=== PATIENT | female | born 1985 | race American Indian/Alaskan Native ===

== ENCOUNTER 2017-12-08 13:42 | Emergency (ER) | payer OTHER ==
[2017-12-08 13:57] VITALS: BP 149/86
--- NOTE | 2017-12-08 15:07 | Emergency Department Report ---
ED Extremity Problem HPI - General Chief complaint: Extremity Problem,Nontraumatic Stated complaint: KNEE PAIN Time Seen by Provider: 12/08/17 14:56 Source: patient Mode of arrival: Ambulatory Limitations: No Limitations - History of Present Illness Initial comments: Patient is 32 years old female with no significant past medical history. Patient presented to the ER complaining of history of left knee pain that just get worse recently. Patient denied any history of injury or trauma but she stated that she woke 12 hours and she stands a lot on her feet. Patient denied any fever, nausea or vomiting. No other complaint. Patient denied any chest pain or shortness of breath. MD Complaint: joint paint -: month(s) Location: left, knee History of Same: No -: No myalgia, No arthralgia, No fever, No associated dyspnea, No associated chest pain Radiation: none Severity scale (0 -10): 5 Quality: sharp Consistency: constant Improves with: immobilization Worsens with: weight bearing Associated Symptoms: denies other symptoms. denies: chest pain, shortness of breath, fever, myalgias, arthralgias - Related Data Allergies Allergy/AdvReac Type Severity Reaction Status Date / Time No Known Allergies Allergy Verified 12/08/17 13:54 ED Review of Systems ROS: Stated complaint: KNEE PAIN Other details as noted in HPI Comment: All other systems reviewed and negative Constitutional: denies: chills, fever ENT: denies: throat pain Cardiovascular: denies: chest pain Gastrointestinal: denies: abdominal pain, nausea, vomiting Genitourinary: denies: urgency, dysuria ED Past Medical Hx - Past Medical History Previous Medical History?: No - Surgical History Past Surgical History?: No - Social History Smoking Status: Never Smoker Substance Use Type: None ED Physical Exam - General Limitations: No Limitations General appearance: alert, in no apparent distress - Head Head exam: Present: atraumatic, normocephalic, normal inspection - ENT ENT exam: Present: normal exam, normal orophraynx - Respiratory Respiratory exam: Present: normal lung sounds bilaterally - Cardiovascular Cardiovascular Exam: Present: regular rate, normal heart sounds - GI/Abdominal GI/Abdominal exam: Present: soft. Absent: distended, tenderness, guarding - Expanded Lower Extremity Exam Left Knee exam: Present: full ROM. Absent: tenderness, swelling, abrasion, laceration, ecchymosis, deformity, crepidus, dislocation, erythema, effusion, pain w/ pronation/supination, posterior draw sign, pain/laxity with valgus, pain /laxity with varus, full knee extension Neuro vascular tendon exam: Present: no vascular compromise ED Course Vital Signs 12/08/17 13:54 Temperature 98.9 F Pulse Rate 79 Respiratory 16 Rate Blood Pressure 149/86 O2 Sat by Pulse 97 Oximetry ED Medical Decision Making - Radiology Data Radiology results: report reviewed Referring Physician: REBEKAH RAMIREZ Patient Name: JEN GIBSON Date of : 1985 Sex: Female Report Date: 2017-12-08 Report Status: Finalized Findings [facility] [address] [place] [address] XRay Report Signed Patient: JEN GIBSON MR#: [id number] : 1985 Acct:[id number] Age/Sex: 32 / F ADM Date: 12/08/17 Loc: ED Attending Dr: Ordering Physician: REBEKAH RAMIREZ Date of Service: 12/08/17 Procedure(s): XR knee 3V LT Accession Number(s): [id number] cc: REBEKAH RAMIREZ Fluoro Time In Minutes: FINAL REPORT PROCEDURE: Left knee. TECHNIQUE: Three views. HISTORY: Knee pain. COMPARISON: No prior studies are available for comparison. FINDINGS: The bones appear intact without fracture or dislocation. The joint spaces appear normal. The soft tissues are unremarkable. There is no evidence of a knee effusion. IMPRESSION: Normal study. Transcribed By: MRM Dictated By: YAMILE BRIONES MD Electronically Authenticated By: YAMILE BRIONES MD Signed Date/Time: 12/08/17 1640 DD/ 1640 TD/TT: 12/08/17 1640 Critical care attestation.: If time is entered above; I have spent that time in minutes in the direct care of this critically ill patient, excluding procedure time. ED Disposition Clinical Impression: Knee pain, left Disposition: DC-01 TO HOME OR SELFCARE Is pt being admited?: No Condition: Stable Instructions: Osteoarthritis (ED), Knee Pain (ED)
--- NOTE | 2017-12-08 16:45 | XRay Report ---
FINAL REPORT PROCEDURE: Left knee. TECHNIQUE: Three views. HISTORY: Knee pain. COMPARISON: No prior studies are available for comparison. FINDINGS: The bones appear intact without fracture or dislocation. The joint spaces appear normal. The soft tissues are unremarkable. There is no evidence of a knee effusion. IMPRESSION: Normal study.
== END 2017-12-08 17:05 | disposition home or self-care (01) ==
LOC: ED 13:42
DX: M25.562 Pain in left knee (principal)
CPT/HCPCS: 99283

== ENCOUNTER 2018-02-23 06:22 | Emergency (ER) | payer OTHER ==
[2018-02-23 07:03] VITALS: BP 149/76
[2018-02-23] MEDS ORDERED: TORADOL IM ONE (07:44)
--- NOTE | 2018-02-23 07:45 | Emergency Department Report ---
ED Lower Extremity HPI - General Chief Complaint: Extremity Injury, Lower Stated Complaint: FALL/LEFT ANKLE INJURY Source: patient Mode of arrival: Ambulatory Limitations: No Limitations - History of Present Illness Initial Comments: This is a 32-year-old -Turkish female who presents with left ankle pain from a fall. Patient states yesterday morning she was on her way to work and fell down the stairs twisting her left ankle inward. Patient reports it was very painful to attempt to stand. She is able to apply partial weight to left lower extremity. There is swelling and redness to the lateral side of the ankle. Patient states she is taken ibuprofen 800 mg, applied icy hot and ice to ankle with no improvement of symptoms. Patient reports pain is worse with weightbearing and touch. She reports pain as 8 out of 10 on pain scale and sharp achy intensity. Patient denies numbness or tingling, deformity, warmth, weakness, paralysis, loss of consciousness, hitting head, chest pain. MD Complaint: ankle injury (left ankle) Onset/Timin -: days(s) Injury: Ankle: Left Type of Injury: inversion Place: home Severity: severe Severity scale (0 -10): 8 Improves With: cold therapy, immobilization, rest Worsens With: weight bearing, movement, palpation Context: fall Associated Symptoms: swelling, able to partially bear weight, ambulatory. denies: numbness, tingling, unable to bear weight Treatments Prior to Arrival: cold therapy, NSAIDS - Related Data Previous Rx's Medication Instructions Recorded Last Taken Type Ondansetron [Zofran Odt] 4 mg PO Q8HR PRN #14 tab.rapdis 12/08/17 Unknown Rx traMADol [Ultram] 50 mg PO Q6HR PRN #14 tablet 12/08/17 Unknown Rx Ibuprofen [Motrin 800 MG tab] 800 mg PO Q8HR PRN #12 tablet 02/23/18 Unknown Rx Allergies Allergy/AdvReac Type Severity Reaction Status Date / Time No Known Allergies Allergy Verified 12/08/17 13:54 ED Review of Systems ROS: Stated complaint: FALL/LEFT ANKLE INJURY Other details as noted in HPI Constitutional: denies: chills, fever Respiratory: denies: cough, shortness of breath, wheezing Cardiovascular: denies: chest pain, palpitations Gastrointestinal: denies: abdominal pain, nausea, diarrhea Musculoskeletal: joint swelling (left ankle), arthralgia (left ankle). denies: back pain Skin: denies: rash, lesions Neurological: denies: headache, weakness, paresthesias Psychiatric: denies: anxiety, depression ED Past Medical Hx - Past Medical History Previous Medical History?: No - Surgical History Past Surgical History?: No - Social History Smoking Status: Never Smoker Substance Use Type: None - Medications Home Medications: Home Medications Medication Instructions Recorded Confirmed Last Taken Type Ondansetron [Zofran Odt] 4 mg PO Q8HR PRN #14 tab.rapdis 12/08/17 Unknown Rx traMADol [Ultram] 50 mg PO Q6HR PRN #14 tablet 12/08/17 Unknown Rx Ibuprofen [Motrin 800 MG tab] 800 mg PO Q8HR PRN #12 tablet 02/23/18 Unknown Rx ED Physical Exam - General Limitations: No Limitations General appearance: alert, in no apparent distress, obese - Respiratory Respiratory exam: Present: normal lung sounds bilaterally. Absent: respiratory distress - Cardiovascular Cardiovascular Exam: Present: regular rate, normal rhythm. Absent: systolic murmur, diastolic murmur, rubs, gallop - GI/Abdominal GI/Abdominal exam: Present: soft, normal bowel sounds - Expanded Lower Extremity Exam Left Hip exam: Present: normal inspection, full ROM Upper Leg exam: Present: normal inspection, full ROM Knee exam: Present: normal inspection, full ROM Lower Leg exam: Present: normal inspection, full ROM Ankle exam: Present: tenderness (swelling and tenderness with palpation over lateral malleolus), swelling, anterior draw sign (positive for mild pain). Absent: full ROM, abrasion, laceration, ecchymosis, deformity, crepidus, dislocation, erythema Foot/Toe exam: Present: normal inspection, full ROM Neuro vascular tendon exam: Present: no vascular compromise Gait: Positive: observed and limited by pain - Neurological Exam Neurological exam: Present: alert, oriented X3 - Psychiatric Psychiatric exam: Present: normal affect, normal mood - Skin Skin exam: Present: warm, dry, intact, normal color. Absent: rash ED Course Vital Signs 02/23/18 06:56 Temperature 97.9 F Pulse Rate 85 Respiratory 14 Rate Blood Pressure 149/76 O2 Sat by Pulse 100 Oximetry ED Lower Extremity MDM - Radiology Data Radiology results: report reviewed, image reviewed LEFT ANKLE, 3 views: History: Left ankle injury. Bone mineralization is normal. No acute osseous abnormality or joint pathology is identified. There is moderate lateral soft tissue swelling. IMPRESSION: Soft tissue swelling. No acute osseous injury identified. - Medical Decision Making Patient was examined by me in the emergency room. Vitals are normal and patient is in no acute distress. Patient given Toradol 30 mg IM once in the ER for pain. Obtained a x-ray of left ankle. X-rays dictated by radiologist and report reviewed by myself. Soft tissue swelling. No acute osseous injury identified. Patient informed of results. Stirrup splint applied to left ankle and foot. Patient given crutches with education. Start ibuprofen for muscle sprain. Patient has been advised to modify activity as needed. She has also been instructed to ice as needed and to follow-up in her few days with primary care provider. I discussed strengthening exercises. Plan discussed with patient to discharge home and treat outpatient. He agrees with ER plan. Patient discharged home in stable condition. Follow up with PCP in 2-3 days. Return to work in 2-3 days. Critical care attestation.: If time is entered above; I have spent that time in minutes in the direct care of this critically ill patient, excluding procedure time. ED Disposition Clinical Impression: Left lateral ankle pain Sprain of ankle, left Qualifiers: Encounter type: initial encounter Involved ligament of ankle: anterior talofibular ligament Qualified Code(s): S93.492A - Sprain of other ligament of left ankle, initial encounter Disposition: TO HOME OR SELFCARE Is pt being admited?: No Does the pt Need Aspirin: No Condition: Stable Instructions: Ankle Sprain (ED), Ankle Stirrup Splint (ED) Additional Instructions: Rest Use ice or heat on affected area for 20 minutes and off for 2 hours. Take pain medication as needed for pain. Follow up with Primary Care Provider in 2-3 days. Prescriptions: Ibuprofen [Motrin 800 MG tab] 800 mg PO Q8HR PRN #12 tablet PRN Reason: Pain , Severe (7-10) Referrals: NAOMIE BALBUENA MD [Staff Physician] - 3-5 Days [facility] [Provider Group] - 3-5 Days FRED BROWN MD [Staff Physician] - 3-5 Days Forms: Work/School Release Form(ED) Time of Disposition: 08:26 Print Language: SAMI
--- NOTE | 2018-02-23 08:09 | XRay Report ---
LEFT ANKLE, 3 views: History: Left ankle injury. Bone mineralization is normal. No acute osseous abnormality or joint pathology is identified. There is moderate lateral soft tissue swelling. IMPRESSION: Soft tissue swelling. No acute osseous injury identified.
== END 2018-02-23 08:48 | disposition home or self-care (01) ==
LOC: ED 06:22
DX: S93.492A Sprain of other ligament of left ankle, initial encounter (principal); W10.9XXA Fall (on) (from) unspecified stairs and steps, initial encounter; Y93.89 Activity, other specified; Y92.89 Other specified places as the place of occurrence of the external cause; Y99.8 Other external cause status
CPT/HCPCS: 29515; 73610; 96372; 99284; J1885

== ENCOUNTER 2018-06-23 08:32 | Emergency (ER) | payer OTHER ==
[2018-06-23 08:58] VITALS: BP 135/94
--- NOTE | 2018-06-23 09:37 | XRay Report ---
LEFT KNEE, 3 views: History: Pain. The bony architecture is intact without evidence of fracture or dislocation. No significant soft tissue abnormality is seen. IMPRESSION: Normal left knee. No change since 12/08/17.
--- NOTE | 2018-06-23 10:04 | Emergency Department Report ---
ED General Adult HPI - General Chief complaint: Extremity Injury, Lower Stated complaint: LEFT KNEE PAIN/SWOLLEN Time Seen by Provider: 06/23/18 09:27 Source: patient Mode of arrival: Ambulatory Limitations: No Limitations - History of Present Illness Initial comments: The patient presents to the ED with left knee pain that has been present since 2008. Patient was diagnosed with patellar synfrome via MRI years ago but was not sent to PT. 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 Scheduled MRI next week. previous PCP gave gabepentin which she was not pleased with because it was to strong -: Gradual Location: lower extremity Radiation: non-radiation Severity scale (0 -10): 5 Quality: aching Consistency: constant Improves with: rest Worsens with: movement Associated Symptoms: denies other symptoms Treatments Prior to Arrival: none - Related Data Previous Rx's Medication Instructions Recorded Last Taken Type Ondansetron [Zofran Odt] 4 mg PO Q8HR PRN #14 tab.rapdis 12/08/17 Unknown Rx traMADol [Ultram] 50 mg PO Q6HR PRN #14 tablet 12/08/17 Unknown Rx Ibuprofen [Motrin 800 MG tab] 800 mg PO Q8HR PRN #12 tablet 02/23/18 Unknown Rx predniSONE [Deltasone] 20 mg PO QDAY #15 tab 06/23/18 Unknown Rx traMADol [Ultram] 50 mg PO Q6HR PRN #24 tablet 06/23/18 Unknown Rx Allergies Allergy/AdvReac Type Severity Reaction Status Date / Time No Known Allergies Allergy Verified 06/23/18 08:54 ED Review of Systems ROS: Stated complaint: LEFT KNEE PAIN/SWOLLEN Other details as noted in HPI Comment: All other systems reviewed and negative Constitutional: denies: chills, fever Eyes: denies: eye pain, eye discharge, vision change ENT: denies: ear pain, throat pain Respiratory: denies: cough, shortness of breath, wheezing Cardiovascular: denies: chest pain, palpitations Endocrine: no symptoms reported Gastrointestinal: denies: abdominal pain, nausea, diarrhea Genitourinary: denies: urgency, dysuria, discharge Musculoskeletal: denies: back pain, joint swelling, arthralgia Skin: denies: rash, lesions Neurological: denies: headache, weakness, paresthesias Psychiatric: denies: anxiety, depression Hematological/Lymphatic: denies: easy bleeding, easy bruising ED Past Medical Hx - Past Medical History Previous Medical History?: Yes Hx Hypertension: Yes - Surgical History Past Surgical History?: No - Social History Smoking Status: Never Smoker Substance Use Type: Alcohol - Medications Home Medications: Home Medications Medication Instructions Recorded Confirmed Last Taken Type Ondansetron [Zofran Odt] 4 mg PO Q8HR PRN #14 tab.rapdis 12/08/17 Unknown Rx traMADol [Ultram] 50 mg PO Q6HR PRN #14 tablet 12/08/17 Unknown Rx Ibuprofen [Motrin 800 MG tab] 800 mg PO Q8HR PRN #12 tablet 02/23/18 Unknown Rx predniSONE [Deltasone] 20 mg PO QDAY #15 tab 06/23/18 Unknown Rx traMADol [Ultram] 50 mg PO Q6HR PRN #24 tablet 06/23/18 Unknown Rx ED Physical Exam - General Limitations: No Limitations General appearance: alert, in no apparent distress - Head Head exam: Present: atraumatic, normocephalic - Eye Eye exam: Present: normal appearance - ENT ENT exam: Present: mucous membranes moist - Neck Neck exam: Present: normal inspection - Respiratory Respiratory exam: Present: normal lung sounds bilaterally. Absent: respiratory distress - Cardiovascular Cardiovascular Exam: Present: regular rate, normal rhythm. Absent: systolic murmur, diastolic murmur, rubs, gallop - Extremities Exam Extremities exam: Present: other (TTP of left patella tendon with crepitus present ) - Back Exam Back exam: Present: normal inspection - Neurological Exam Neurological exam: Present: alert, oriented X3 - Psychiatric Psychiatric exam: Present: normal affect, normal mood - Skin Skin exam: Present: warm, dry, intact, normal color. Absent: rash ED Course Vital Signs 06/23/18 08:50 Temperature 98.9 F Pulse Rate 85 Respiratory 16 Rate Blood Pressure 135/94 O2 Sat by Pulse 100 Oximetry ED Medical Decision Making - Radiology Data Radiology results: report reviewed - Medical Decision Making discussed the knee to purchase a knee brace will refer to ortho Critical care attestation.: If time is entered above; I have spent that time in minutes in the direct care of this critically ill patient, excluding procedure time. ED Disposition Clinical Impression: Knee pain Disposition: - TO HOME OR SELFCARE Is pt being admited?: No Does the pt Need Aspirin: No Condition: Stable Instructions: Knee Pain (ED) Additional Instructions: Return if if worse Prescriptions: predniSONE [Deltasone] 20 mg PO QDAY #15 tab traMADol [Ultram] 50 mg PO Q6HR PRN #24 tablet PRN Reason: Pain Referrals: MARK PARKER MD [Primary Care Provider] - 3-5 Days Forms: Work/School Release Form(ED) Time of Disposition: 10:05
== END 2018-06-23 10:26 | disposition home or self-care (01) ==
LOC: ED 08:32
DX: M25.562 Pain in left knee (principal); I10 Essential (primary) hypertension

== ENCOUNTER 2018-08-06 16:38 | Emergency (ER) | payer OTHER ==
--- NOTE | 2018-08-06 17:02 | Emergency Department Report ---
Blank Doc - Documentation Documentation: This is a 32-year-old female that presents with headache with nasal congestion. Denies worst headache or thunderclap headache. Exam: neuro exam normal. Normal strength. No facial drooping. This initial assessment/diagnostic orders/clinical plan/treatment(s) is/are subject to change based on patient's health status, clinical progression and re- assessment by fellow clinical providers in the ED. Further treatment and workup at subsequent clinical providers discretion. Patient/guardians urged not to elope from the ED as their condition may be serious if not clinically assessed and managed. Initial orders include: 1- Patient sent to [facility] for further evaluation and treatment
[2018-08-06 17:04] VITALS: BP 157/90
--- NOTE | 2018-08-06 18:18 | Emergency Department Report ---
ED Headache HPI - General Chief Complaint: Headache Stated Complaint: SINUS PROBLEMS/HEADACHE/SHERRIE Time Seen by Provider: 08/06/18 18:01 Source: patient Exam Limitations: no limitations - History of Present Illness Timing/Duration: other (3 weeks) Quality: severe, constant, stabbing, throbbing Head Injury Location: frontal, other (sinus) Recent Head Trauma: no recent headache/trauma Modifying Factors: improves with: medication, rest Associated Symptoms: facial pain, nasal congestion, nasal drainage, sinus infection. denies: confusion, fatigue, fever/chills, flushing, loss of consciousness, nausea/vomiting, numbness in legs/feet, rash, seizures, stiff neck, vision changes, weakness Allergies/Adverse Reactions: Allergies No Known Allergies Allergy (Verified 08/06/18 16:46) Home Medications: Ambulatory Orders Ondansetron [Zofran Odt] 4 mg PO Q8HR PRN #14 tab.rapdis 12/08/17 traMADol [Ultram] 50 mg PO Q6HR PRN #14 tablet 12/08/17 Ibuprofen [Motrin 800 MG tab] 800 mg PO Q8HR PRN #12 tablet 02/23/18 predniSONE [Deltasone] 20 mg PO QDAY #15 tab 06/23/18 traMADol [Ultram] 50 mg PO Q6HR PRN #24 tablet 06/23/18 Doxycycline Hyclate [Doxycycline Hyclate TAB] 100 mg PO Q12HR 10 Days #20 tab 08/06/18 methylPREDNISolone [Medrol] 4 mg PO DAILY 6 Days #1 tab.ds.pk 08/06/18 ED Review of Systems ROS: Stated complaint: SINUS PROBLEMS/HEADACHE/SHERRIE Other details as noted in HPI Constitutional: denies: chills, fever Eyes: denies: eye pain, eye discharge, vision change ENT: denies: ear pain, throat pain Respiratory: denies: cough, shortness of breath, wheezing Cardiovascular: denies: chest pain, palpitations Endocrine: no symptoms reported Gastrointestinal: denies: abdominal pain, nausea, diarrhea Genitourinary: denies: urgency, dysuria, discharge Musculoskeletal: denies: back pain, joint swelling, arthralgia Skin: denies: rash, lesions Neurological: headache. denies: weakness, paresthesias Psychiatric: denies: anxiety, depression Hematological/Lymphatic: denies: easy bleeding, easy bruising ED Past Medical Hx - Past Medical History Previous Medical History?: Yes Hx Hypertension: Yes Hx Heart Attack/AMI: Yes Hx Seizures: Yes - Surgical History Past Surgical History?: No - Family History Family history: no significant - Social History Smoking Status: Never Smoker Substance Use Type: None - Medications Home Medications: Home Medications Medication Instructions Recorded Confirmed Last Taken Type Ondansetron [Zofran Odt] 4 mg PO Q8HR PRN #14 tab.rapdis 12/08/17 Unknown Rx traMADol [Ultram] 50 mg PO Q6HR PRN #14 tablet 12/08/17 Unknown Rx Ibuprofen [Motrin 800 MG tab] 800 mg PO Q8HR PRN #12 tablet 02/23/18 Unknown Rx predniSONE [Deltasone] 20 mg PO QDAY #15 tab 06/23/18 Unknown Rx traMADol [Ultram] 50 mg PO Q6HR PRN #24 tablet 06/23/18 Unknown Rx Doxycycline Hyclate [Doxycycline 100 mg PO Q12HR 10 Days #20 tab 08/06/18 Unknown Rx Hyclate TAB] methylPREDNISolone [Medrol] 4 mg PO DAILY 6 Days #1 tab.ds.pk 08/06/18 Unknown Rx ED Physical Exam - General Limitations: No Limitations General appearance: alert, in no apparent distress - Head Head exam: Present: atraumatic, normocephalic - Eye Eye exam: Present: normal appearance, PERRL Pupils: Present: normal accommodation - ENT ENT exam: Present: mucous membranes moist, other (frontal/maxillary sinus tenderness on palpation.) - Expanded ENT Exam Expanded Ear exam: Present: normal external inspection Mouth exam: Present: normal external inspection - Neck Neck exam: Present: normal inspection, full ROM. Absent: tenderness, meningi smus - Respiratory Respiratory exam: Present: normal lung sounds bilaterally. Absent: respiratory distress, wheezes, rales, rhonchi - Cardiovascular Cardiovascular Exam: Present: regular rate, normal rhythm. Absent: systolic murmur, diastolic murmur, rubs, gallop - GI/Abdominal GI/Abdominal exam: Present: soft, normal bowel sounds - Rectal Rectal exam: Present: deferred - Extremities Exam Extremities exam: Present: normal inspection, full ROM - Back Exam Back exam: Present: normal inspection, full ROM - Neurological Exam Neurological exam: Present: alert, oriented X3 - Psychiatric Psychiatric exam: Present: normal affect, normal mood - Skin Skin exam: Present: warm, dry, intact, normal color. Absent: rash ED Course Vital Signs 08/06/18 17:02 Temperature 97.9 F Pulse Rate 63 Respiratory 18 Rate Blood Pressure 157/90 O2 Sat by Pulse 100 Oximetry - Reevaluation(s) Reevaluation #1: Discussed plan of care with patient. Patient agrees with plan of care. Patient will be given Rocephin and Solu-Medrol IM prior to discharge. Patient stable for discharge. Patient clinical findings are consistent with a sinus infection. Patient was treated accordingly. Patient agrees with plan of care and discharge. 08/06/18 18:16 ED Medical Decision Making - Medical Decision Making Patient is a 32-year-old female Emergency room with a sinus headache. Patient found to have sinusitis. Patient was treated with Anaprox. Patient given Solu- Medrol and Rocephin prior to discharge. - Differential Diagnosis headache. Sinus headache. Sinusitis. Critical care attestation.: If time is entered above; I have spent that time in minutes in the direct care of this critically ill patient, excluding procedure time. ED Disposition Clinical Impression: Sinusitis Qualifiers: Sinusitis location: frontal Chronicity: acute Recurrence: non-recurrent Qualified Code(s): J01.10 - Acute frontal sinusitis, unspecified Disposition: DC-01 TO HOME OR SELFCARE Is pt being admited?: No Does the pt Need Aspirin: No Condition: Stable Instructions: Sinusitis (ED), Acute Bacterial Rhinosinusitis (ED) Additional Instructions: Patient involved primary care in 2-3 days. Patient to return to ER if condition worsens. Patient to take meds as instructed. Patient take Tylenol or ibuprofen when necessary for pain. Patient to rest Prescriptions: Doxycycline Hyclate [Doxycycline Hyclate TAB] 100 mg PO Q12HR 10 Days #20 tab methylPREDNISolone [Medrol] 4 mg PO DAILY 6 Days #1 tab.ds.pk Referrals: LAKSHMI MCCLENDON MD [Primary Care Provider] - 2-3 Days Time of Disposition: 18:20
[2018-08-06] MEDS ORDERED: ROCEPHIN IM ONE (18:20)
[2018-08-06] MEDS ORDERED: SOLU-Medrol IM ONE (18:20)
[2018-08-06] MEDS ORDERED: XYLOCAINE 1% MPF 5 mL INFILTRATI ONE (18:20)
== END 2018-08-06 18:59 | disposition home or self-care (01) ==
LOC: ED 16:38
DX: J32.9 Chronic sinusitis, unspecified (principal); I10 Essential (primary) hypertension; I25.2 Old myocardial infarction
CPT/HCPCS: 96372; 99282; J0696; J2930

== ENCOUNTER 2018-10-29 02:58 | Emergency (ER) | payer OTHER ==
[2018-10-29 03:50] LABS: Basophils % (Auto) 0.6 % (0.0-1.8); Eosinophils % (Auto) 0.8 % (0.0-4.3); Hematocrit 38.1 % (30.3-42.9); Hemoglobin 12.4 gm/dl (10.1-14.3); Lymphocytes # (Auto) 1.5 K/mm3 (1.2-5.4); Lymphocytes % (Auto) 44.9 % (13.4-35.0); Mean Corpuscular HGB Conc 33 % (30-34); Mean Corpuscular Volume 84 fl (79-97); Monocytes # (Auto) 0.4 K/mm3 (0.0-0.8); Monocytes % (Auto) 10.9 % (0.0-7.3); Platelet Count 216 K/mm3 (140-440); Red Blood Count 4.53 M/mm3 (3.65-5.03); Red Cell Distribution Width 15.4 % (13.2-15.2)
[2018-10-29 04:14] LABS: BUN/Creatinine Ratio 33; Blood Urea Nitrogen 20 mg/dL (7-17); Calcium 8.5 mg/dL (8.4-10.2); Hemolysis Index 7
[2018-10-29] MEDS ORDERED: ZOFRAN IV ONE (07:44)
[2018-10-29] MEDS ORDERED: MORPHINE IV ONE (07:44)
[2018-10-29] MEDS ORDERED: NACL 0.9% 1000 ML 1,000 ML IV ONE (07:44)
--- NOTE | 2018-10-29 08:36 | Emergency Department Report ---
ED Female HPI - General Chief complaint: Abdominal Pain Stated complaint: EXTREME MENTRUAL PAIN Time Seen by Provider: 10/29/18 07:32 Source: patient Mode of arrival: Ambulatory Limitations: No Limitations - History of Present Illness Initial comments: This is a 33-year-old female nontoxic, well nourished in appearance, no acute signs of distress presents to the ED with c/o of acute on chronic pelvic cramping years. Patient also stated he has some nausea vomiting. Patient stated that she has a history of dysmenorrhea and stated that her . [employer] placed an IUD due to this and since while starting on her menstrual cycle started to have pelvic cramping. Patient denies chest pain, short of breath, fever, chills, headache, stiff neck, numbness or tingling. Patient denies any diarrhea or constipation. Patient denies any recent travels. Patient denies any drug allergies significant past medical history. MD Complaint: pelvic pain -: days(s) (4) Radiation: non-radiating Severity: mild Severity scale (0 -10): 3 Quality: cramping Consistency: constant Improves with: none Worsens with: none Are you Now?: No Associated Symptoms: vaginal bleeding, nausea/vomiting. denies: vaginal discharge, abdominal pain, fever/chills, headaches, loss of appetite, dysuria, hematuria, rash, seizure, shortness of breath, syncope, weakness - Related Data Previous Rx's Medication Instructions Recorded Last Taken Type Ondansetron [Zofran Odt] 4 mg PO Q8HR PRN #14 tab.rapdis 12/08/17 Unknown Rx traMADol [Ultram] 50 mg PO Q6HR PRN #14 tablet 12/08/17 Unknown Rx Ibuprofen [Motrin 800 MG tab] 800 mg PO Q8HR PRN #12 tablet 02/23/18 Unknown Rx predniSONE [Deltasone] 20 mg PO QDAY #15 tab 06/23/18 Unknown Rx traMADol [Ultram] 50 mg PO Q6HR PRN #24 tablet 06/23/18 Unknown Rx Doxycycline Hyclate [Doxycycline 100 mg PO Q12HR 10 Days #20 tab 08/06/18 Unknown Rx Hyclate TAB] methylPREDNISolone [Medrol] 4 mg PO DAILY 6 Days #1 tab.ds.pk 03/10/19 Unknown Rx Acetaminophen/Codeine [Tylenol 1 tab PO Q6H PRN #12 tab 10/29/18 Unknown Rx /Codeine # 3 tab] Ibuprofen [Motrin] 600 mg PO Q8H PRN #20 tablet 10/29/18 Unknown Rx Sulfamethoxazole/Trimethoprim 1 each PO BID #14 tablet 10/29/18 Unknown Rx [Bactrim DS TAB] Allergies Allergy/AdvReac Type Severity Reaction Status Date / Time No Known Allergies Allergy Verified 10/29/18 03:02 ED Review of Systems ROS: Stated complaint: EXTREME MENTRUAL PAIN Other details as noted in HPI Constitutional: denies: chills, fever Eyes: denies: eye pain, eye discharge, vision change ENT: denies: ear pain, throat pain Respiratory: denies: cough, shortness of breath, wheezing Cardiovascular: denies: chest pain, palpitations Endocrine: no symptoms reported Gastrointestinal: denies: abdominal pain, nausea, diarrhea Genitourinary: abnormal menses. denies: urgency, dysuria, discharge Musculoskeletal: denies: back pain, joint swelling, arthralgia Skin: denies: rash, lesions Neurological: denies: headache, weakness, paresthesias Psychiatric: denies: anxiety, depression Hematological/Lymphatic: denies: easy bleeding, easy bruising ED Past Medical Hx - Past Medical History Previous Medical History?: Yes Hx Hypertension: Yes Hx Heart Attack/AMI: Yes Hx Seizures: Yes - Surgical History Past Surgical History?: No - Social History Smoking Status: Never Smoker Substance Use Type: None - Medications Home Medications: Home Medications Medication Instructions Recorded Confirmed Last Taken Type Ondansetron [Zofran Odt] 4 mg PO Q8HR PRN #14 tab.rapdis 12/08/17 Unknown Rx traMADol [Ultram] 50 mg PO Q6HR PRN #14 tablet 12/08/17 Unknown Rx Ibuprofen [Motrin 800 MG tab] 800 mg PO Q8HR PRN #12 tablet 02/23/18 Unknown Rx predniSONE [Deltasone] 20 mg PO QDAY #15 tab 06/23/18 Unknown Rx traMADol [Ultram] 50 mg PO Q6HR PRN #24 tablet 06/23/18 Unknown Rx Doxycycline Hyclate [Doxycycline 100 mg PO Q12HR 10 Days #20 tab 08/06/18 Unkno wn Rx Hyclate TAB] methylPREDNISolone [Medrol] 4 mg PO DAILY 6 Days #1 tab.ds.pk 08/06/18 Unknown Rx Acetaminophen/Codeine [Tylenol 1 tab PO Q6H PRN #12 tab 10/29/18 Unknown Rx /Codeine # 3 tab] Ibuprofen [Motrin] 600 mg PO Q8H PRN #20 tablet 10/29/18 Unknown Rx Sulfamethoxazole/Trimethoprim 1 each PO BID #14 tablet 10/29/18 Unknown Rx [Bactrim DS TAB] ED Physical Exam - General Limitations: No Limitations General appearance: alert, in no apparent distress - Head Head exam: Present: atraumatic, normocephalic - Neck Neck exam: Present: normal inspection, full ROM - GI/Abdominal GI/Abdominal exam: Present: soft, normal bowel sounds. Absent: distended, tenderness, guarding, rebound, rigid, diminished bowel sounds, hyperactive bowel sounds, hypoactive bowel sounds, mass, bruit, pulsatile mass - Extremities Exam Extremities exam: Present: normal inspection, full ROM - Back Exam Back exam: Present: normal inspection, full ROM. Absent: tenderness, CVA tenderness (R), CVA tenderness (L), muscle spasm, paraspinal tenderness, vertebral tenderness, rash noted - Neurological Exam Neurological exam: Present: alert, oriented X3, normal gait - Psychiatric Psychiatric exam: Present: normal affect, normal mood - Skin Skin exam: Present: warm, dry, intact, normal color. Absent: rash ED Course Vital Signs 10/29/18 03:02 Temperature 98.1 F Pulse Rate 82 Respiratory 18 Rate Blood Pressure 108/52 O2 Sat by Pulse 97 Oximetry - Reevaluation(s) Reevaluation #1: 10/29/18 08:35 Patient is speaking in full sentences with no signs of distress noted. - Consultations Consultation #1: 10/29/18 12:26 Patient has been consulted with Dr. Sukumar V about patient history, physical exam, and labs/US report and agrees to ED plan of care and discharge plan of care. ED Medical Decision Making - Lab Data Result diagrams: 10/29/18 03:30 10/29/18 03:30 - Medical Decision Making This is a 33-year-old female that presents with UTI, dysmenorrhea and uterine fibroids. Patient is stable and was examined by me. There is no abdominal tenderness. Negative signs of symptoms of appendicitis. Labs obtained. UA obtained. US pelvic/transvaginal obtained and dictated by the radiologist. I am not concerned about ovarian torsion. Patient clinically does not present with this. Zulyn was also consulted with Dr. Sukumar V which agrees. Patient is notified of the report with no questions noted by the patient. Vital signs are stable prior to discharge. Patient received medical treatment in the ED which patient stated symptoms has resolved and subsided. Was instructed note to operate any machinery due to possible drowsiness and stated someone will drive the patient home. A by mouth challenge has been obtained and patient tolerated well with no nausea vomiting. Patient was notified of strict precautions of appendicitis symptoms and to return to the ED if symptoms occurs as soon as possible. Patient was also instructed to Follow-up with a primary care doctor in 3-5 days or if symptoms worsen and continue return to emergency room as soon as possible. At time of discharge, the patient does not seem toxic or ill in a ppearance. No acute signs of distress noted. Patient agrees to discharge treatment plan of care. No further questions noted by the patient. Critical care attestation.: If time is entered above; I have spent that time in minutes in the direct care of this critically ill patient, excluding procedure time. ED Disposition Clinical Impression: UTI (urinary tract infection) Qualifiers: Urinary tract infection type: acute cystitis Hematuria presence: without hematuria Qualified Code(s): N30.00 - Acute cystitis without hematuria Ovarian cyst Qualifiers: Laterality: bilateral Qualified Code(s): N83.201 - Unspecified ovarian cyst, right side; N83.202 - Unspecified ovarian cyst, left side Uterine fibroid Qualifiers: Uterine leiomyoma location: unspecified location Qualified Code(s): D25.9 - Leiomyoma of uterus, unspecified Disposition: DC-01 TO HOME OR SELFCARE Is pt being admited?: No Does the pt Need Aspirin: No Condition: Stable Instructions: Urinary Tract Infection in Women (ED), Ovarian Cyst (ED), Uterine Fibroids (ED) Additional Instructions: Follow-up with a OBGYN doctor in 3-5 days or if symptoms worsen and continue return to emergency room as soon as possible. Prescriptions: Sulfamethoxazole/Trimethoprim [Bactrim DS TAB] 1 each PO BID #14 tablet Ibuprofen [Motrin] 600 mg PO Q8H PRN #20 tablet PRN Reason: Pain Acetaminophen/Codeine [Tylenol /Codeine # 3 tab] 1 tab PO Q6H PRN #12 tab PRN Reason: Pain , Severe (7-10) Referrals: LAKSHMI MCCLENDON MD [Primary Care Provider] - 3-5 Days PRIMARY CAREMD [Referring] - 3-5 Days JEFF MCCOY MD [Staff Physician] - 3-5 Days [facility] [Provider Group] - 3-5 Days Forms: Work/School Release Form(ED)
[2018-10-29 09:10] LABS: Bilirubin,Urine NEG (Negative); Blood,Urine LG (Negative); Color,Urine Yellow (Yellow); Mucus,Urine 2+ /HPF; Urobilinogen,Urine < 2.0 mg/dL (<2.0)
[2018-10-29 09:11] LABS: HCG Qualitative,Urine Negative (Negative)
--- NOTE | 2018-10-29 10:19 | XRay Report ---
PROCEDURE: XR ABD SERIES W CXR 1V TECHNIQUE: Acute abdominal series including frontal chest and supine/upright abdominal views HISTORY: abd pain COMPARISON: None FINDINGS: Chest radiograph demonstrates no congestion, infiltrate, pleural effusion or pneumothorax. There is no free air. Abdominal gas pattern is nonspecific and nonobstructive. There is some air and fluid in normal caliber colon. There is minimal gas in nondilated small bowel. There are no suspiciou s air-fluid levels. There are no suspicious calcifications seen. IUD projects in the pelvis. IMPRESSION: Nonspecific, nonobstructive abdomen. Unremarkable chest radiograph. This document is electronically signed by Gisell Barakat MD., October 29 2018 11:16:40 AM ET
--- NOTE | 2018-10-29 12:19 | Ultrasound Report ---
PROCEDURE: US PELVIC COMPLETE TECHNIQUE: Real-time transabdominal sonography in multiple planes of the pelvis was performed. The p elvic structures were not optimally visualized. Transvaginal sonography was then performed to better evaluate the structures and/or abnormalities described below with image documentation. Grayscale, col or flow Doppler imaging, and velocity spectral waveform analysis of the ovaries was employed (duplex imaging). HISTORY: pelvic pain COMPARISONS: None . FINDINGS: UTERUS Size: 10.7 x 4.9 x 6.1 cm. IUD: Present and in appropriate position. Endometrial thickness: 2.6 mm. Orientation: anteverted. Cervix: Normal. Fibroids/masses: Multiple uterine fibroids are seen. The largest in the posterior aspect of the uteru s measures 3.8 x 1.9 x 3.4 cm. Another in the anterior aspect of the uterine fundus measures 1.6 x 1. 4 x 1.8 cm. Another in the anterior aspect of the mid uterine body measures 1.0 x 0.6 x 1.1 cm. RIGHT Ovary: 2.8 x 1.7 x 2.5 cm. Appearance: Normal. Measured complex lesion with the right ovary likely represents a degenerating cor pus luteal cyst. A dominant right ovarian follicle is seen. Doppler images: Normal spectral waveforms and color flow images of the arterial inflow. Venous wavefo yovani were not seen. LEFT Ovary: 3.0 x 1.9 x 2.4 cm. Appearance: A mildly complex cystic lesion is seen in the left ovary measuring 1.0 x 0.8 x 0.8 cm. Th e other measured complex left ovarian lesion likely represents a degenerating corpus luteal cyst. Doppler images: Normal spectral waveforms and color flow images of the arterial inflow and venous out flow. Pelvic fluid: None. IMPRESSION: 1. Mildly complex left ovarian lesion may represent a hemorrhagic cyst. Recommend follow-up pelvic ul trasound in 6-10 weeks. 2. Normal arterial waveforms seen to the right ovary. Venous waveforms were not seen. Could consider repeat study to assess for venous waveforms to the right ovary if there is concern for ovarian torsio n. 3. 3 uterine fibroids. 4. IUD in place. This document is electronically signed by Kimberli Howell., October 29 2018 01:17:35 PM ET
[2018-10-29 12:49] VITALS: BP 146/94
== END 2018-10-29 12:49 | disposition home or self-care (01) ==
LOC: ED 02:58
DX: N39.0 Urinary tract infection, site not specified (principal); N83.209 Unspecified ovarian cyst, unspecified side; D25.9 Leiomyoma of uterus, unspecified; I10 Essential (primary) hypertension; I25.2 Old myocardial infarction
CPT/HCPCS: 36415; 74022; 76830; 76856; 80048; 81001; 81025; 85025; 87086; 96361; 96374; 96375; 99284; J2270; J2405; J7030

== ENCOUNTER 2018-11-10 10:12 | Emergency (ER) | payer OTHER ==
[2018-11-10 10:20] VITALS: BP 150/102
--- NOTE | 2018-11-10 11:57 | Emergency Department Report ---
HPI - General Chief Complaint: Urogenital-Female Time Seen by Provider: 11/10/18 11:53 - HPI HPI: Patient is a very pleasant 33-year-old who comes to the ER complaining of ongoing pelvic pain and cramping. She was seen here recently and had a full workup and was having problems with her acute on chronic fibroids. She follows with Dr. Mike at [place] for these fibroids. Last night the pain was so bad she could not go to work. She is having no vaginal bleeding at this time. Patient has a long history of fibroids doing back well over a year. She was initially treated with an IUD which did not help with the bleeding. Her [employer]NAGER than adequate estrogen would stop the bleeding and things got better for a short period of time. However, in the last month the pain has reoccurred. She does have an appointment with Dr. Mike on Tuesday. She had been sent home from the ER on Tylenol 3 and ibuprofen which she is now out of. She has a past medical history of hypertension for which she takes losartan. She has been taking up and states that her blood pressure is up because of the pain. She has no shortness of breath, chest pain or headache. Patient's last menstrual period was 6-1. She has been one time and has one living child EMR has been reviewed and given her ultrasound findings on her visit 2 weeks ago, the recommended follow-up, and the appointment is not until next week I have repeated the ultrasound to rule out any ovarian torsion. ED Past Medical Hx - Past Medical History Hx Hypertension: Yes Hx Heart Attack/AMI: Yes Hx Seizures: Yes - Social History Smoking Status: Never Smoker Substance Use Type: None - Medications Home Medications: Home Medications Medication Instructions Recorded Confirmed Last Taken Type traMADol [Ultram] 50 mg PO Q6HR PRN #10 tablet 11/10/18 Unknown Rx ED Review of Systems ROS: Stated complaint: PELVIC PAIN Other details as noted in HPI Comment: All other systems reviewed and negative Physical Exam - Physical Exam Vital Signs: Vital Signs 11/10/18 10:18 Temperature 98.9 F Pulse Rate 89 Respiratory 18 Rate Blood Pressure 150/102 O2 Sat by Pulse 99 Oximetry Physical Exam: WDWN patient in NAD VS per RN flow sheet Alert and oriented to person, place and time. S1-S2. No S3 or S4. No systolic or diastolic murmur. No JVD. No pitting edema. Lungs clear to auscultation bilaterally anteriorly and posteriorly. Abdomen soft nontender bowel sounds X4 Moves all extremities well. Mood and affect appropriate. ED Course Vital Signs 11/10/18 10:18 Temperature 98.9 F Pulse Rate 89 Respiratory 18 Rate Blood Pressure 150/102 O2 Sat by Pulse 99 Oximetry ED Medical Decision Making - Radiology Data Radiology results: report reviewed, image reviewed - Medical Decision Making Pt concerned that her pain continues. She has ran out of meds and her appnt is not until next week. VSS non toxic playing on phone during ER visit. US NOTED- no acute process UA NOTED preg neg medicated for pain in ER dc home with dc plan of care and follow up. Pt will see her obgyn as scheduled. Vital Signs 11/10/18 10:18 Temperature 98.9 F Pulse Rate 89 Respiratory 18 Rate Blood Pressure 150/102 O2 Sat by Pulse 99 Oximetry Lab Results 11/10/18 Range/Units 12:54 Urine Color Yellow (Yellow) Urine Turbidity Clear (Clear) Urine pH 6.0 (5.0-7.0) Ur Specific [place] 1.016 (1.003-1.030) Urine Protein <15 mg/dl (Negative) mg/dL Urine Glucose (UA) Neg (Negative) mg/dL Urine Ketones 20 (Negative) mg/dL Urine Blood Neg (Negative) Urine Nitrite Neg (Negative) Urine Bilirubin Neg (Negative) Urine Urobilinogen < 2.0 (<2.0) mg/dL Ur Leukocyte Esterase Neg (Negative) Urine WBC (Auto) 1.0 (0.0-6.0) /HPF Urine RBC (Auto) 4.0 (0.0-6.0) /HPF U Epithel Cells (Auto) 2.0 (0-13.0) /HPF Urine Mucus Few /HPF Urine HCG, Qual Negative (Negative) - Differential Diagnosis RO OVARIAN TORSION- SEE PREVOUS US REPORT Critical care attestation.: If time is entered above; I have spent that time in minutes in the direct care of this critically ill patient, excluding procedure time. ED Disposition Clinical Impression: Uterine fibroid Disposition: DC-01 TO HOME OR SELFCARE Is pt being admited?: No Does the pt Need Aspirin: No Condition: Stable Additional Instructions: FOLLOW UP WITH OBGYN SCHEDULED PELVIC REST MOTRIN OR TYLENOL FOR MILD PAIN ULTRAM FOR SEVERE PAIN DIET AND ACTIVITY TOLERATED Prescriptions: traMADol [Ultram] 50 mg PO Q6HR PRN #10 tablet PRN Reason: Pain Referrals: MAX KNAPP MD [Primary Care Provider] - 3-5 Days Forms: Work/School Release Form(ED) Time of Disposition: 15:41
[2018-11-10] MEDS ORDERED: NORCO 10/325 PO ONE (12:01)
[2018-11-10] MEDS ORDERED: ZOFRAN ODT PO ONE (12:01)
[2018-11-10 13:08] LABS: Bilirubin,Urine NEG (Negative); Blood,Urine NEG (Negative); Color,Urine Yellow (Yellow); Mucus,Urine FEW /HPF; Protein,Urine <15 mg/dL mg/dL (Negative); Urobilinogen,Urine < 2.0 mg/dL (<2.0)
[2018-11-10 13:35] LABS: HCG Qualitative,Urine Negative (Negative)
--- NOTE | 2018-11-10 15:35 | Ultrasound Report ---
ULTRASOUND PELVIS DUPLEX DOPPLER COMPLETE - TRANSABDOMINAL AND TRANSVAGINAL: INDICATION: Persistent pelvic pain. COMPARISON: 10/29/2018. FINDINGS: Transabdominal and transvaginal pelvic sonography with spectral Doppler performed in this patient with LMP of 10/26/2018 and demonstrates a 9.6 x 4.9 x 6.4 cm uterus with at least 3 small anterior fibroids again noted in the 1-1.5 cm size range. A well-positioned IUD with posterior shadowing also again seen. Tiny nabothian cyst. Closed cervix. Small pelvic free fluid. Right ovary is 3.1 x 2.1 x 3.2 cm with a 1.7 cm cyst. Left ovary measures 3.2 x 2.6 x 2.7 cm with at least 2 complex areas measuring approximately 2 cm each as on endovaginal images 26-30, possibly ruptured/hemorrhagic cyst. Preserved bilateral ovarian blood flow. CONCLUSION: No acute pelvic sonographic abnormality or significant interval change with few small uterine fibroids and an IUD again noted, as described. Please correlate. Thank you for the opportunity to participate in this patient's care.
== END 2018-11-10 17:06 | disposition home or self-care (01) ==
LOC: ED 10:12
DX: D25.9 Leiomyoma of uterus, unspecified (principal); I11.0 Hypertensive heart disease with heart failure; I50.9 Heart failure, unspecified
CPT/HCPCS: 76830; 81001; 81025; 93975; Q0162

== ENCOUNTER 2018-12-23 11:34 | Emergency (ER) | payer OTHER ==
[2018-12-23 11:42] VITALS: BP 153/105
--- NOTE | 2018-12-23 11:51 | Event Note ---
Date: 12/23/18 h/o seizures disorder on keppra, 250mg bid, states seizures are becoming more frequent. last seizure this morning, prior to that this past tuesday. no fever, neck pain, chills or night sweats.
[2018-12-23 12:16] LABS: Hematocrit 40.6 % (30.3-42.9); Hemoglobin 13.1 gm/dl (10.1-14.3); Mean Corpuscular HGB Conc 32 % (30-34); Mean Corpuscular Volume 85 fl (79-97); Platelet Count 222 K/mm3 (140-440); Red Blood Count 4.77 M/mm3 (3.65-5.03)
[2018-12-23 12:34] LABS: Alanine Aminotransferase 16 units/L (7-56); BUN/Creatinine Ratio 20; Blood Urea Nitrogen 14 mg/dL (7-17); Calcium 8.7 mg/dL (8.4-10.2); Hemolysis Index 8
[2018-12-23 12:43] LABS: Bilirubin,Urine NEG (Negative); Blood,Urine LG (Negative); Color,Urine Yellow (Yellow); Mucus,Urine FEW /HPF; Protein,Urine <15 mg/dL mg/dL (Negative); Urobilinogen,Urine < 2.0 mg/dL (<2.0)
[2018-12-23 12:44] LABS: HCG Qualitative,Urine Negative (Negative)
[2018-12-23 12:53] LABS: Amphetamine Screen,Urine PRESUMPTIVE NEGATIVE; Benzodiazepines Screen,Urine PRESUMPTIVE NEGATIVE; Cannabinoid Screen,Urine PRESUMPTIVE NEGATIVE; Cocaine Screen,Urine PRESUMPTIVE NEGATIVE; Methadone Screen,Urine PRESUMPTIVE NEGATIVE; Opiate Screen,Urine PRESUMPTIVE NEGATIVE
[2018-12-23] MEDS ORDERED: KEPPRA 1,000 MG/NS 0.75% 100ML 1,000 MG/100 ML BAG IV ONE (12:59)
--- NOTE | 2018-12-23 13:07 | Emergency Department Report ---
ED Seizure HPI - General Chief Complaint: Seizure Stated Complaint: SEIZURES/HEADACHE/ANXIETY Time Seen by Provider: 12/23/18 12:59 Source: patient Mode of arrival: Ambulatory Limitations: No Limitations - History of Present Illness Initial Comments: Ms. Can is a 33 yo female with hx of seizures since age 26. She stopped taking antiepileptic medications end of 2014 on her own. She has been seizure free until 3 weeks ago. Her PCP restarted Keppra and recommended a neurologist outpatient. She had seizure possiby this morning. She feels shaky. Currently no fever. MD Complaint: seizure -: week(s) (3) Witnessed:: Yes Trauma: No Seizure History: known seizure disorder Place: home - Related Data Home Medications Medication Instructions Recorded Confirmed Last Taken levETIRAcetam [Keppra TAB] 250 mg PO BID 12/23/18 12/23/18 Unknown Previous Rx's Medication Instructions Recorded Last Taken Type levETIRAcetam [Keppra TAB] 500 mg PO BID 30 Days #60 tablet 12/23/18 Unknown Rx Allergies Allergy/AdvReac Type Severity Reaction Status Date / Time No Known Allergies Allergy Verified 11/10/18 10:14 ED Review of Systems ROS: Stated complaint: SEIZURES/HEADACHE/ANXIETY Other details as noted in HPI Comment: All other systems reviewed and negative Constitutional: denies: fever, malaise Respiratory: denies: cough Cardiovascular: denies: palpitations ED Past Medical Hx - Past Medical History Previous Medical History?: Yes Hx Hypertension: Yes Hx Heart Attack/AMI: Yes Hx Seizures: Yes - Surgical History Past Surgical History?: No - Social History Smoking Status: Never Smoker Substance Use Type: None - Medications Home Medications: Home Medications Medication Instructions Recorded Confirmed Last Taken Type levETIRAcetam [Keppra TAB] 250 mg PO BID 12/23/18 12/23/18 Unknown History levETIRAcetam [Keppra TAB] 500 mg PO BID 30 Days #60 tablet 12/23/18 Unknown Rx ED Physical Exam - General Limitations: No Limitations General appearance: alert, in no apparent distress - Head Head exam: Present: atraumatic, normocephalic - Eye Eye exam: Present: normal appearance - ENT ENT exam: Present: mucous membranes moist - Neck Neck exam: Present: normal inspection, full ROM - Respiratory Respiratory exam: Present: normal lung sounds bilaterally. Absent: respiratory distress, wheezes, rales, rhonchi - Cardiovascular Cardiovascular Exam: Present: regular rate, normal rhythm, normal heart sounds. Absent: systolic murmur, diastolic murmur, rubs, gallop - GI/Abdominal GI/Abdominal exam: Present: soft, normal bowel sounds. Absent: distended, tenderness, guarding, rebound - Extremities Exam Extremities exam: Present: normal inspection - Back Exam Back exam: Present: normal inspection - Neurological Exam Neurological exam: Present: alert, oriented X3 - Psychiatric Psychiatric exam: Present: normal affect, normal mood - Skin Skin exam: Present: warm, dry, intact, normal color. Absent: rash ED Course Vital Signs 12/23/18 11:37 Temperature 98.6 F Pulse Rate 79 Respiratory 18 Rate Blood Pressure 153/105 O2 Sat by Pulse 97 Oximetry ED Medical Decision Making - Lab Data Result diagrams: 12/23/18 12:01 12/23/18 12:01 Laboratory Results - last 24 hr 12/23/18 12/23/18 12/23/18 12:01 12:01 12:20 WBC 3.5 L RBC 4.77 Hgb 13.1 Hct 40.6 MCV 85 MCH 28 MCHC 32 RDW 16.0 H Plt Count 222 Sodium 141 Potassium 3.5 L Chloride 104.8 Carbon Dioxide 29 Anion Gap 11 BUN 14 Creatinine 0.7 Estimated GFR > 60 BUN/Creatinine Ratio 20 Glucose 90 Calcium 8.7 Total Bilirubin 0.40 AST 20 ALT 16 Alkaline Phosphatase 76 Total Protein 7.8 Albumin 4.0 Albumin/Globulin Ratio 1.1 Urine Color Yellow Urine Turbidity Clear Urine pH 6.0 Ur Specific [place] 1.018 Urine Protein <15 mg/dl Urine Glucose (UA) Neg Urine Ketones Neg Urine Blood Lg Urine Nitrite Neg Urine Bilirubin Neg Urine Urobilinogen < 2.0 Ur Leukocyte Esterase Neg Urine WBC (Auto) 2.0 Urine RBC (Auto) 12.0 U Epithel Cells (Auto) < 1.0 Urine Mucus Few Urine HCG, Qual Negative Urine Opiates Screen Urine Methadone Screen Ur Barbiturates Screen Ur Phencyclidine Scrn Ur Amphetamines Screen U Benzodiazepines Scrn Urine Cocaine Screen U Marijuana (THC) Screen Drugs of Abuse Note 12/23/18 12:20 WBC RBC Hgb Hct MCV MCH MCHC RDW Plt Count Sodium Potassium Chloride Carbon Dioxide Anion Gap BUN Creatinine Estimated GFR BUN/Creatinine Ratio Glucose Calcium Total Bilirubin AST ALT Alkaline Phosphatase Total Protein Albumin Albumin/Globulin Ratio Urine Color Urine Turbidity Urine pH Ur Specific [place] Urine Protein Urine Glucose (UA) Urine Ketones Urine Blood Urine Nitrite Urine Bilirubin Urine Urobilinogen Ur Leukocyte Esterase Urine WBC (Auto) Urine RBC (Auto) U Epithel Cells (Auto) Urine Mucus Urine HCG, Qual Urine Opiates Screen Presumptive negative Urine Methadone Screen Presumptive negative Ur Barbiturates Screen Presumptive negative Ur Phencyclidine Scrn Presumptive negative Ur Amphetamines Screen Presumptive negative U Benzodiazepines Scrn Presumptive negative Urine Cocaine Screen Presumptive negative U Marijuana (THC) Screen Presumptive negative Drugs of Abuse Note Disclamer - Medical Decision Making Ms. Can has history of known seizure disorder. Recommended increasing Keppra from 250 mg to 500 mg by mouth twice a day. She received IV Keppra load in the ED. CBC chemistry urine studies all within normal limits. Referred to neurologist. Critical care attestation.: If time is entered above; I have spent that time in minutes in the direct care of this critically ill patient, excluding procedure time. ED Disposition Clinical Impression: Seizure disorder, Recurrent seizures Disposition: DC-01 TO HOME OR SELFCARE Is pt being admited?: No Does the pt Need Aspirin: No Condition: Stable Instructions: Recurrent Seizures Adult (ED) Prescriptions: levETIRAcetam [Keppra TAB] 500 mg PO BID 30 Days #60 tablet Referrals: GISSELLE WU MD [Staff Physician] - 3-5 Days Forms: Work/School Release Form(ED)
[2018-12-23] MEDS ORDERED: ZOFRAN ODT PO ONE (13:41)
[2018-12-23] MEDS ORDERED: IBUPROFEN PO ONE (13:41)
[2018-12-23] MEDS ORDERED: NORCO 5/325 PO ONE (13:41)
== END 2018-12-23 13:56 | disposition home or self-care (01) ==
LOC: ED 11:34
DX: G40.909 Epilepsy, unspecified, not intractable, without status epilepticus (principal)
CPT/HCPCS: 36415; 80053; 80307; 81001; 81025; 85027; 96365; 99283; J1953; Q0162

== ENCOUNTER 2019-01-02 16:11 | Emergency (ER) | payer OTHER ==
--- NOTE | 2019-01-02 17:44 | Event Note ---
ED Screening Note Date of service: 01/02/19 Time: 17:41 ED Screening Note: 33 y/o female comes in with anxiety like symptoms. Patient just started back having seizures. Since she has started back on seizure meds and now having tremors dizziness insomnia and headache. Last seizure 12/29/18. Appt with neurology 01/25/19. This initial assessment/diagnostic orders/clinical plan/treatment(s) is/are subject to change based on patients health status, clinical progression and re- assessment by fellow clinical providers in the ED. Further treatment and workup at subsequent clinical providers discretion. Patient/guardian urged not to elope from the ED as their condition may be serious if not clinically assessed and managed. Initial orders include:
[2019-01-02 22:01] VITALS: BP 111/77
--- NOTE | 2019-01-02 22:10 | Emergency Department Report ---
ED General Adult HPI - General Chief complaint: Dizziness Stated complaint: DIZZY/TREMORS Time Seen by Provider: 01/02/19 17:39 Source: patient Mode of arrival: Ambulatory Limitations: No Limitations - History of Present Illness Initial comments: Mrs. Can is a pleasant 33-year-old female with previous history of seizure presents with tremor and anxiety. She was evaluated by her PCP who encouraged her to continue Keppra. She has been forgetful. She is extremely anxious. Her neurology appointment is January 25. No seizures. She is afraid that she is going to have a seizure ordered. She desires medication for anxiety. She's also had insomnia. She denies pain. Denies problems. However she feels as if her balance is off. She feels as if something is not right. I have seen Mrs. Can recently for seizure activity. -: Gradual, days(s), week(s) (several) Severity scale (0 -10): 6 Consistency: constant Improves with: none Worsens with: medication Associated Symptoms: headaches, malaise Treatments Prior to Arrival: none - Related Data Home Medications Medication Instructions Recorded Confirmed Last Taken levETIRAcetam [Keppra TAB] 250 mg PO BID 12/23/18 12/23/18 Unknown Previous Rx's Medication Instructions Recorded Last Taken Type levETIRAcetam [Keppra TAB] 500 mg PO BID 30 Days #60 tablet 12/23/18 Unknown Rx Zolpidem [Ambien] 5 mg PO QHS PRN #10 tablet 01/02/19 Unknown Rx Allergies Allergy/AdvReac Type Severity Reaction Status Date / Time No Known Allergies Allergy Verified 11/10/18 10:14 ED Review of Systems ROS: Stated complaint: DIZZY/TREMORS Other details as noted in HPI Comment: All other systems reviewed and negative Constitutional: malaise Neurological: headache, confusion, abnormal gait. denies: numbness, paresthesias ED Past Medical Hx - Past Medical History Previous Medical History?: Yes Hx Hypertension: Yes Hx Heart Attack/AMI: Yes Hx Seizures: Yes - Surgical History Past Surgical History?: No - Social History Smoking Status: Never Smoker Substance Use Type: None - Medications Home Medications: Home Medications Medication Instructions Recorded Confirmed Last Taken Type levETIRAcetam [Keppra TAB] 250 mg PO BID 07/27/19 07/27/19 Unknown History levETIRAcetam [Keppra TAB] 500 mg PO BID 30 Days #60 tablet 12/23/18 Unknown Rx Zolpidem [Ambien] 5 mg PO QHS PRN #10 tablet 01/02/19 Unknown Rx ED Physical Exam - General Limitations: No Limitations General appearance: alert, in no apparent distress - Head Head exam: Present: atraumatic, normocephalic - Eye Eye exam: Present: normal appearance - ENT ENT exam: Present: mucous membranes moist - Neck Neck exam: Present: normal inspection, full ROM - Respiratory Respiratory exam: Present: normal lung sounds bilaterally. Absent: respiratory distress, wheezes, rales, rhonchi - Cardiovascular Cardiovascular Exam: Present: regular rate, normal rhythm, normal heart sounds. Absent: systolic murmur, diastolic murmur, rubs, gallop - GI/Abdominal GI/Abdominal exam: Present: soft, normal bowel sounds. Absent: distended, tenderness, guarding - Extremities Exam Extremities exam: Present: normal inspection - Back Exam Back exam: Present: normal inspection - Neurological Exam Neurological exam: Present: alert, oriented X3, CN II-XII intact, normal gait, reflexes normal. Absent: motor sensory deficit - Psychiatric Psychiatric exam: Present: normal affect, depressed, anxious. Absent: homicidal ideation, suicidal ideation - Skin Skin exam: Present: warm, dry, intact, normal color. Absent: rash ED Course Vital Signs 01/02/19 01/02/19 17:39 22:01 Temperature 99.0 F 97.6 F Pulse Rate 71 76 Respiratory 20 16 Rate Blood Pressure 137/88 Blood Pressure 111/77 [Left] O2 Sat by Pulse 99 100 Oximetry ED Medical Decision Making - Medical Decision Making Ms. Can presents with tremor and anxiety. I prescribed ambien. Dc'd home to f/u with PCP and neurology. Critical care attestation.: If time is entered above; I have spent that time in minutes in the direct care of this critically ill patient, excluding procedure time. ED Disposition Clinical Impression: Recurrent seizures, Seizure disorder, Anxiety, Insomnia, Tremor Disposition: DC-01 TO HOME OR SELFCARE Is pt being admited?: No Does the pt Need Aspirin: No Condition: Stable Instructions: Anxiety (ED), Insomnia (ED) Prescriptions: Zolpidem [Ambien] 5 mg PO QHS PRN #10 tablet PRN Reason: Sleep Referrals: DEBBI FUNK MD [Primary Care Provider] - 3-5 Days
== END 2019-01-02 22:38 | disposition home or self-care (01) ==
LOC: ED 16:11
DX: G40.909 Epilepsy, unspecified, not intractable, without status epilepticus (principal); F41.9 Anxiety disorder, unspecified; G47.00 Insomnia, unspecified; I10 Essential (primary) hypertension; I25.2 Old myocardial infarction; Z79.899 Other long term (current) drug therapy
CPT/HCPCS: 99282

== ENCOUNTER 2019-01-05 06:08 | Emergency (ER) | payer OTHER ==
--- NOTE | 2019-01-05 06:30 | Emergency Department Report ---
ED General Adult HPI - General Stated complaint: SEIZURE LIKE ACTIVITY/HEADACHE Time Seen by Provider: 01/05/19 06:16 - History of Present Illness Initial comments: This is a 33-year-old female that has been to this emergency department several times under similar circumstances. As she has prior, she states that she was tremulous at work. She stated that she was fully awake. She states that she didn't know if she was having a "seizure or not. She states that she has a history of seizure disorder, anxiety disorder and conversion disorder. She did not lose consciousness. She did not hurt herself. She complains of mild headache as she has in the past. 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 She did not injure herself. Patient really has no active complaints on arrival other than chronic insomnia. She has been prescribed Ambien thereof. Apparently she received a prescription for the same on 01/02/19. She states that she has no appointment to see a neurologist and a psychologist. She is fully ambulatory and requests to go to the bathroom. Review of the patient's prior laboratory workup and toxicological analysis revealed no remarkable abnormalities. -: Gradual Associated Symptoms: denies other symptoms Treatments Prior to Arrival: none - Related Data Home Medications Medication Instructions Recorded Confirmed Last Taken levETIRAcetam [Keppra TAB] 250 mg PO BID 12/23/18 12/23/18 Unknown Previous Rx's Medication Instructions Recorded Last Taken Type levETIRAcetam [Keppra TAB] 500 mg PO BID 30 Days #60 tablet 12/23/18 Unknown Rx Zolpidem [Ambien] 5 mg PO QHS PRN #10 tablet 01/02/19 Unknown Rx Allergies Allergy/AdvReac Type Severity Reaction Status Date / Time No Known Allergies Allergy Verified 11/10/18 10:14 ED Review of Systems ROS: Stated complaint: SEIZURE LIKE ACTIVITY/HEADACHE Other details as noted in HPI Constitutional: denies: chills, fever Eyes: denies: eye pain, eye discharge, vision change ENT: denies: ear pain, throat pain Respiratory: denies: cough, shortness of breath, wheezing Cardiovascular: denies: chest pain, palpitations Endocrine: no symptoms reported Gastrointestinal: denies: abdominal pain, nausea, diarrhea Genitourinary: denies: urgency, dysuria, discharge Musculoskeletal: denies: back pain, joint swelling, arthralgia Skin: denies: rash, lesions Neurological: headache (occasional headaches). denies: weakness, paresthesias Psychiatric: anxiety. denies: depression Hematological/Lymphatic: denies: easy bleeding, easy bruising ED Past Medical Hx - Past Medical History Hx Hypertension: Yes Hx Heart Attack/AMI: Yes Hx Seizures: Yes - Social History Smoking Status: Never Smoker Substance Use Type: None - Medications Home Medications: Home Medications Medication Instructions Recorded Confirmed Last Taken Type levETIRAcetam [Keppra TAB] 250 mg PO BID 12/23/18 12/23/18 Unknown History levETIRAcetam [Keppra TAB] 500 mg PO BID 30 Days #60 tablet 12/23/18 Unknown Rx Zolpidem [Ambien] 5 mg PO QHS PRN #10 tablet 01/02/19 Unknown Rx ED Physical Exam - General General appearance: alert, in no apparent distress - Head Head exam: Present: atraumatic, normocephalic - Eye Eye exam: Present: normal appearance. Absent: scleral icterus - ENT ENT exam: Present: mucous membranes moist - Neck Neck exam: Present: normal inspection. Absent: tenderness, meningismus - Respiratory Respiratory exam: Present: normal lung sounds bilaterally. Absent: respiratory distress - Cardiovascular Cardiovascular Exam: Present: regular rate, normal rhythm. Absent: systolic murmur, diastolic murmur, rubs, gallop - GI/Abdominal GI/Abdominal exam: Present: soft, normal bowel sounds. Absent: distended, tenderness, guarding, rebound, rigid - Extremities Exam Extremities exam: Present: normal inspection. Absent: calf tenderness - Back Exam Back exam: Present: normal inspection - Neurological Exam Neurological exam: Present: alert, oriented X3, CN II-XII intact, normal gait. Absent: motor sensory deficit - Psychiatric Psychiatric exam: Present: normal mood, flat affect - Skin Skin exam: Present: warm, dry, intact, normal color. Absent: rash ED Course Vital Signs 01/05/19 06:22 Temperature 98 F Pulse Rate 84 Respiratory 18 Rate Blood Pressure 122/87 O2 Sat by Pulse 98 Oximetry - Reevaluation(s) Reevaluation #1: At discharge her, it does not appear to be necessary to pursue further medical screening for the patient's recurrent complaints. She has appropriate follow-up already in place. We will observe her and see if there is any evidence of a need for further evaluation. 01/05/19 06:30 Reevaluation #2: 01/05/19 08:09 Patient states that she has a mild headache. She states "I know I have nothing wrong with my brain". They check that before. I asked patient if she felt like she needed an emergency psychiatric evaluation. She stated not. Therefore having not identified any emergency medical condition the patient will be referred to her outpatient providers. Critical care attestation.: If time is entered above; I have spent that time in minutes in the direct care of this critically ill patient, excluding procedure time. ED Disposition Clinical Impression: Anxiety disorder Qualifiers: Anxiety disorder type: unspecified anxiety disorder Qualified Code(s): F41.9 - Anxiety disorder, unspecified Disposition: DC-01 TO HOME OR SELFCARE Is pt being admited?: No Does the pt Need Aspirin: No Condition: Stable Instructions: Anxiety (ED), Acute Headache (ED) Additional Instructions: Follow-up with the psychiatrist and neurologist as planned as well as her primary care provider. Return to the emergency department any acute change or problem. [id number] medication is appropriate for your headache. Referrals: PRIMARY CARE [Primary Care Provider] - [facility] Time of Disposition: 08:11
[2019-01-05] MEDS ORDERED: IBUPROFEN PO ONE (08:12)
[2019-01-05 08:57] VITALS: BP 104/65
== END 2019-01-05 08:52 | disposition home or self-care (01) ==
LOC: ED 06:08
DX: F41.9 Anxiety disorder, unspecified (principal); G40.909 Epilepsy, unspecified, not intractable, without status epilepticus; G47.00 Insomnia, unspecified; I10 Essential (primary) hypertension
CPT/HCPCS: 99283

== ENCOUNTER 2019-04-14 11:00 | Emergency (ER) | payer OTHER ==
--- NOTE | 2019-04-14 11:44 | Event Note ---
ED Screening Note Date of service: 04/14/19 Time: 11:40 ED Screening Note: This is a 33 y.o. F. that presents to the ER with headache, dizziness, and anxiety for 3 days. Patient states symptoms occurred a few times before after starting new medication briviact but never lasted this long. Started new medication 03/21/19. She previously was taking lamictal. This initial assessment/diagnostic orders/clinical plan/treatment(s) is/are subject to change based on patients health status, clinical progression and re- assessment by fellow clinical providers in the ED. Further treatment and workup at subsequent clinical providers discretion. Patient/guardian urged not to elope from the ED as their condition may be serious if not clinically assessed and managed. Initial orders include:
--- NOTE | 2019-04-14 13:53 | Emergency Department Report ---
ED General Adult HPI - General Chief complaint: Headache Stated complaint: SEIZURE/PANIC ATTACK/HEADACHE Time Seen by Provider: 04/14/19 11:40 Source: patient Mode of arrival: Ambulatory Limitations: No Limitations - History of Present Illness Initial comments: 33-year-old -[place] female patient with history of seizure disorder, anxiety disorder, conversion disorder, and insomnia presents with complaints of headache, dizziness, and recurrent panic attacks for the past 3 days. Denies any history of migraines, head trauma, vision changes, or numbness/tingling/weakness in her extremities. She denies any confusion or difficulty with speech. Patient states she believes she is having allergic reaction to a new seizure medication she was placed on, Briviact, around 03/18/2019 by her neurologist. She states she experienced these same symptoms during her first few days and taken the medication and then the symptoms resolve. As any seizures since starting this medication. Patient states the headache is more in her face and rates it at an 8/10 in severity. She denies any congestion or cough or fever or neck pain. The patient's blood pressure noted to be elevated at 150/114patient states she was diagnosed with high blood pressure 1-2 weeks ago and described lisinopril which she has not started taking yet. -: Sudden - Related Data Home Medications Medication Instructions Recorded Confirmed Last Taken levETIRAcetam [Keppra TAB] 250 mg PO BID 12/23/18 12/23/18 Unknown Previous Rx's Medication Instructions Recorded Last Taken Type levETIRAcetam [Keppra TAB] 500 mg PO BID 30 Days #60 tablet 12/23/18 Unknown Rx Zolpidem [Ambien] 5 mg PO QHS PRN #10 tablet 01/02/19 Unknown Rx Zolpidem [Ambien] 5 mg PO QHS PRN #3 tablet 04/14/19 Unknown Rx Allergies Allergy/AdvReac Type Severity Reaction Status Date / Time No Known Allergies Allergy Verified 11/10/18 10:14 ED Review of Systems ROS: Stated complaint: SEIZURE/PANIC ATTACK/HEADACHE Other details as noted in HPI ED Past Medical Hx - Past Medical History Previous Medical History?: Yes Hx Hypertension: Yes Hx Heart Attack/AMI: Yes Hx Seizures: Yes Additional medical history: anxiety - Surgical History Past Surgical History?: No - Social History Smoking Status: Never Smoker Substance Use Type: None - Medications Home Medications: Home Medications Medication Instructions Recorded Confirmed Last Taken Type levETIRAcetam [Keppra TAB] 250 mg PO BID 12/23/18 12/23/18 Unknown History levETIRAcetam [Keppra TAB] 500 mg PO BID 30 Days #60 tablet 12/23/18 Unknown Rx Zolpidem [Ambien] 5 mg PO QHS PRN #10 tablet 01/02/19 Unknown Rx Zolpidem [Ambien] 5 mg PO QHS PRN #3 tablet 04/14/19 Unknown Rx ED Physical Exam - General Limitations: No Limitations General appearance: alert, in no apparent distress - Head Head exam: Present: atraumatic, normocephalic - Eye Eye exam: Present: normal appearance, PERRL, EOMI. Absent: scleral icterus - ENT ENT exam: Present: normal orophraynx, other (mild tenderness noted over maxillary sinuses) - Neck Neck exam: Present: normal inspection, full ROM. Absent: tenderness - Respiratory Respiratory exam: Present: normal lung sounds bilaterally. Absent: respiratory distress - Cardiovascular Cardiovascular Exam: Present: regular rate, normal rhythm. Absent: systolic murmur, diastolic murmur, rubs, gallop - GI/Abdominal GI/Abdominal exam: Present: soft. Absent: distended, tenderness - Extremities Exam Extremities exam: Present: normal inspection, full ROM. Absent: pedal edema, calf tenderness - Back Exam Back exam: Present: normal inspection, full ROM - Neurological Exam Neurological exam: Present: alert, oriented X3, CN II-XII intact, normal gait. Absent: motor sensory deficit - Expanded Neurological Exam Expanded Cranial nerves: Gag Reflex: Normal, Tongue Deviation: Normal, Facial Sensation: Normal Cerebellar function: Finger to Nose: Normal, Heel to [place]: Normal, [place]berg: Normal Motor strength exam: RUE: 5, LUE: 5, RLE: 5, LLE: 5 - Psychiatric Psychiatric exam: Present: normal affect, normal mood - Skin Skin exam: Present: warm, dry, intact, normal color. Absent: rash ED Course Vital Signs 04/14/19 04/14/19 04/14/19 11:38 14:58 15:15 Temperature 98.2 F 98.6 F Pulse Rate 97 H 88 88 Respiratory 18 20 Rate Blood Pressure 150/114 150/109 Blood Pressure 150/109 [Left] O2 Sat by Pulse 100 100 Oximetry 04/14/19 04/14/19 04/14/19 15:57 17:37 17:50 Temperature 98.7 F Pulse Rate 83 82 82 Respiratory 20 Rate Blood Pressure 150/11 Blood Pressure 169/115 150/111 [Left] O2 Sat by Pulse 100 Oximetry 04/14/19 04/14/19 17:57 18:43 Temperature Pulse Rate 82 78 Respiratory Rate Blood Pressure Blood Pressure 156/112 144/101 [Left] O2 Sat by Pulse 98 Oximetry ED Medical Decision Making - Lab Data Result diagrams: 04/14/19 13:59 04/14/19 13:59 Lab Results 04/14/19 04/14/19 04/14/19 Range/Units 13:59 13:59 15:14 WBC 4.5 (4.5-11.0) K/mm3 RBC 5.15 H (3.65-5.03) M/mm3 Hgb 14.2 (10.1-14.3) gm/dl Hct 44.4 H (30.3-42.9) % MCV 86 (79-97) fl MCH 28 (28-32) pg MCHC 32 (30-34) % RDW 14.1 (13.2-15.2) % Plt Count 199 (140-440) K/mm3 Sodium 141 (137-145) mmol/L Potassium 4.0 (3.6-5.0) mmol/L Chloride 103.6 (98-107) mmol/L Carbon Dioxide 26 (22-30) mmol/L Anion Gap 15 mmol/L BUN 11 (7-17) mg/dL Creatinine 0.7 (0.7-1.2) mg/dL Estimated GFR > 60 ml/min BUN/Creatinine Ratio 16 % Glucose 84 (65-100) mg/dL Calcium 9.4 (8.4-10.2) mg/dL Total Bilirubin 0.40 (0.1-1.2) mg/dL AST 15 (5-40) units/L ALT 10 (7-56) units/L Alkaline Phosphatase 64 (35-129) units/L Troponin T < 0.010 (0.00-0.029) ng/mL Total Protein 7.9 (6.3-8.2) g/dL Albumin 4.4 (3.9-5) g/dL Albumin/Globulin Ratio 1.3 % Urine Color Yellow (Yellow) Urine Turbidity Clear (Clear) Urine pH 6.0 (5.0-7.0) Ur Specific [place] 1.016 (1.003-1.030) Urine Protein <15 mg/dl (Negative) mg/dL Urine Glucose (UA) Neg (Negative) mg/dL Urine Ketones Neg (Negative) mg/dL Urine Blood Neg (Negative) Urine Nitrite Neg (Negative) Urine Bilirubin Neg (Negative) Urine Urobilinogen < 2.0 (<2.0) mg/dL Ur Leukocyte Esterase Tr (Negative) Urine WBC (Auto) 3.0 (0.0-6.0) /HPF Urine RBC (Auto) 1.0 (0.0-6.0) /HPF U Epithel Cells (Auto) 4.0 (0-13.0) /HPF Urine Bacteria (Auto) 1+ (Negative) /HPF Urine Mucus Few /HPF Urine HCG, Qual Negative (Negative) - Medical Decision Making 3-year-old -[place] female patient with history of seizure disorder, anxiety disorder, conversion disorder, and insomnia presents headache and intermittent dizziness and panic attacks for the past 3 days. She denies thunderclap headache or worst headache of her life. Has any current dizziness, chest pain, shortness of breath, or neurological symptoms. Labs are WNL. The pressure is elevated. He should stay she was recently diagnosed with hypertension and has not started taking her lisinopril. Improvement in BP with amlodipine. EP did improve with hydralazine 25 mg to 144/101. Patient states headache is now 2/10 in severity. Patient also requesting a temporary refill of Ambien. Discussed the importance of compliance with blood pressure medication and uncontrolled BP as possible cause of patient's headaches. Given follow-up with her primary care physician within 3-5 days. Discussed strict return precautions if reviewed with patient who states understanding. Critical care attestation.: If time is entered above; I have spent that time in minutes in the direct care of this critically ill patient, excluding procedure time. ED Disposition Clinical Impression: Uncontrolled hypertension Headache Qualifiers: Headache type: other headache syndrome Qualified Code(s): G44.89 - Other headache syndrome Disposition: - TO HOME OR SELFCARE Is pt being admited?: No Condition: Stable Instructions: Acute Headache (ED), Hypertension (ED) Prescriptions: Zolpidem [Ambien] 5 mg PO QHS PRN #3 tablet PRN Reason: Sleep Referrals: PRIMARY CARE,MD [Primary Care Provider] - 2-3 Days
[2019-04-14 14:24] LABS: Hematocrit 44.4 % (30.3-42.9); Hemoglobin 14.2 gm/dl (10.1-14.3); Mean Corpuscular HGB Conc 32 % (30-34); Mean Corpuscular Volume 86 fl (79-97); Platelet Count 199 K/mm3 (140-440); Red Blood Count 5.15 M/mm3 (3.65-5.03); Red Cell Distribution Width 14.1 % (13.2-15.2)
[2019-04-14] MEDS ORDERED: amLODIPine 5 MG TAB PO ONE (14:31)
[2019-04-14 14:36] LABS: Alanine Aminotransferase 10 units/L (7-56); Albumin 4.4 g/dL (3.9-5); BUN/Creatinine Ratio 16; Blood Urea Nitrogen 11 mg/dL (7-17); Calcium 9.4 mg/dL (8.4-10.2); Hemolysis Index 4
[2019-04-14] MEDS ORDERED: KETOROLAC 30 MG/1 ML INJ IV ONE (15:38)
[2019-04-14] MEDS ORDERED: dexAMETHasone 20 MG/5 ML VIAL IV ONE (15:39)
[2019-04-14 15:51] LABS: Bacteria,Urine 1+ /HPF (Negative); Bilirubin,Urine NEG (Negative); Blood,Urine NEG (Negative); Color,Urine Yellow (Yellow); Mucus,Urine FEW /HPF; Protein,Urine <15 mg/dL mg/dL (Negative); Urobilinogen,Urine < 2.0 mg/dL (<2.0)
[2019-04-14 15:52] LABS: HCG Qualitative,Urine Negative (Negative)
[2019-04-14] MEDS ORDERED: hydrALAZINE 25 MG TAB PO ONE (17:43)
[2019-04-14 18:45] VITALS: BP 144/101
== END 2019-04-14 18:57 | disposition home or self-care (01) ==
LOC: ED 11:00
DX: I10 Essential (primary) hypertension (principal); R51 Headache; I25.2 Old myocardial infarction; F41.9 Anxiety disorder, unspecified
CPT/HCPCS: 36415; 80053; 81001; 81025; 84484; 85027; 96374; 96375; 99284; J1100; J1885

== ENCOUNTER 2019-05-13 10:13 | Emergency (ER) | payer OTHER ==
[2019-05-13 10:46] VITALS: BP 143/92
[2019-05-13] MEDS ORDERED: TETANUS,DIPH,PERTUSS(ACELL) VACCINE 0.5 ML SYRINGE IM ONE (12:21)
--- NOTE | 2019-05-13 12:30 | Emergency Department Report ---
ED Laceration HPI - HPI Chief Complaint: Wound/Laceration Stated Complaint: LT FINGER CUT/LAC Time Seen by Provider: 05/13/19 12:00 Occurred When: Today Location: Upper Extremity Severity: mild Tetanus Status: Not up to Date Laceration Symptoms: Yes Pain, No Foreign Body Sensation, No Numbness, No Weakness Other History: This is a 33-year-old female nontoxic, well nourished in appearance, no acute signs of distress presents to the ED with c/o of left index finger laceration that occurred today. Patient stated that she was cutting at work and injured finger. Patient denies decreased sensation or range of motion. Patient stated bleeding is under control. Denies any numbness, tingling, fever, chills, nausea, vomiting, chest pain, shortness of breath, headache or stiff neck. Patient denies any allergies to significant past medical history. Patient is that he is not up-to-date with tetanus. ED Review of Systems ROS: Stated complaint: LT FINGER CUT/LAC Other details as noted in HPI Constitutional: denies: chills, fever Eyes: denies: eye pain, eye discharge, vision change ENT: denies: ear pain, throat pain Respiratory: denies: cough, shortness of breath, wheezing Cardiovascular: denies: chest pain, palpitations Endocrine: no symptoms reported Gastrointestinal: denies: abdominal pain, nausea, diarrhea Genitourinary: denies: urgency, dysuria, discharge Musculoskeletal: denies: back pain, joint swelling, arthralgia Skin: denies: rash, lesions Neurological: denies: headache, weakness, paresthesias Psychiatric: denies: anxiety, depression Hematological/Lymphatic: denies: easy bleeding, easy bruising ED Past Medical Hx - Past Medical History Previous Medical History?: Yes Hx Hypertension: Yes Hx Heart Attack/AMI: Yes Hx Seizures: Yes Additional medical history: anxiety - Surgical History Past Surgical History?: No - Social History Smoking Status: Never Smoker Substance Use Type: None - Medications Home Medications: Home Medications Medication Instructions Recorded Confirmed Last Taken Type levETIRAcetam [Keppra TAB] 250 mg PO BID 12/23/18 12/23/18 Unknown History levETIRAcetam [Keppra TAB] 500 mg PO BID 30 Days #60 tablet 12/23/18 Unknown Rx Zolpidem [Ambien] 5 mg PO QHS PRN #10 tablet 01/02/19 Unknown Rx Zolpidem [Ambien] 5 mg PO QHS PRN #3 tablet 04/14/19 Unknown Rx Laceration Physical Exam - Exam General: Vital signs noted. No distress. Alert and acting appropriately. Wound Length (cm): 1 Laceration Location: Upper Extremity Laceration Exam: Yes Normal Distal CMS, No Foreign Body, No Exposed Tendon, Vessel, or Nerve, No Tendon Injury ED Course Vital Signs 05/13/19 10:45 Temperature 98.6 F Pulse Rate 94 H Respiratory 18 Rate Blood Pressure 143/92 [Right] O2 Sat by Pulse 99 Oximetry - Reevaluation(s) Reevaluation #1: 05/13/19 12:41 Patient is speaking in full sentences with no signs of distress noted. - Laceration /Wound Repair Left Finger Wound Location: upper extremity (left index finger) Wound Length (cm): 1 Wound's Depth, Shape: superficial Wound Explored: clean Irrigated w/ Saline (ccs): 40 Betadine Prep?: Yes Wound Repaired With: Dermabond Layer Closure?: No Sterile Dressing Applied?: Yes Progress: Under sterile field, I used Betadine to clean the area. I then used 40 mL of normal saline to flush the area. I did use Dermabond to approximate the laceration. I then applied a sterile 4 x 4 with tape. Minimal bleeding noted but is under control. Patient tolerated procedure well with no signs of distress. ED Medical Decision Making - Medical Decision Making This is a 33-year-old female that presents with laceration. Patient is stable and was examined by me. Patient tolerated well. A sterile dressing has been applied. Patient was educated on proper wound care. Patient was educated on proper wound care. Patient was instructed to refer to Follow-up with a primary care doctor in 3-5 days or if symptoms worsen and continue return to emergency room as soon as possible. At time of discharge, the patient does not seem toxic or ill in appearance. No acute signs of distress noted. Patient agrees to discharge treatment plan of care. No further questions noted by the patient. Critical care attestation.: If time is entered above; I have spent that time in minutes in the direct care of this critically ill patient, excluding procedure time. ED Disposition Clinical Impression: Laceration of left index finger Qualifiers: Encounter type: initial encounter Damage to nail status: without damage Foreign body presence: without foreign body Qualified Code(s): S61.211A - Laceration without foreign body of left index finger without damage to nail, initial encounter Disposition: TO HOME OR SELFCARE Is pt being admited?: No Does the pt Need Aspirin: No Condition: Stable Instructions: Laceration (ED), Skin Adhesive Care (ED) Additional Instructions: Follow-up with a primary care doctor in 3-5 days or if symptoms worsen and con tinue return to emergency room as soon as possible. Referrals: PRIMARY CAREMD [Primary Care Provider] - 3-5 Days LAKSHMI MCCLENDON MD [Staff Physician] - 3-5 Days [facility] [Outside] - 3-5 Days Forms: Work/School Release Form(ED)
== END 2019-05-13 13:07 | disposition home or self-care (01) ==
LOC: ED 10:13
DX: S61.211A Laceration without foreign body of left index finger without damage to nail, initial encounter (principal); I10 Essential (primary) hypertension; I25.2 Old myocardial infarction; F41.9 Anxiety disorder, unspecified; Z79.899 Other long term (current) drug therapy; W26.9XXA Contact with unspecified sharp object(s), initial encounter; Y93.89 Activity, other specified; Y92.89 Other specified places as the place of occurrence of the external cause; Y99.8 Other external cause status
CPT/HCPCS: 90471; 90715

== ENCOUNTER 2019-06-28 15:31 | Emergency (ER) | payer OTHER ==
[2019-06-28 16:12] VITALS: BP 159/100
--- NOTE | 2019-06-28 16:13 | Emergency Department Report ---
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 Due to findings the following was ordered: ED Disposition for MSE Clinical Impression: Encounter for medical screening examination Vaginitis Qualifiers: Chronicity: acute Qualified Code(s): N76.0 - Acute vaginitis Disposition: MED SCREENING EXAM-CONT Condition: Stable
[2019-06-28 21:07] LABS: Bacteria,Urine 1+ /HPF (Negative); Bilirubin,Urine NEG (Negative); Blood,Urine NEG (Negative); Color,Urine Yellow (Yellow); Mucus,Urine FEW /HPF; Protein,Urine <15 mg/dL mg/dL (Negative); Urobilinogen,Urine < 2.0 mg/dL (<2.0)
[2019-06-28 21:13] LABS: HCG Qualitative,Urine Negative (Negative)
--- NOTE | 2019-06-28 22:12 | Emergency Department Report ---
ED General Adult HPI - General Chief complaint: Urogenital-Female Stated complaint: VAGINAL INFECTION Time Seen by Provider: 06/28/19 20:22 Source: patient Mode of arrival: Ambulatory Limitations: No Limitations - History of Present Illness Initial comments: 33-year-old -[place] female presents with complaints of vaginal discharge 2 days. She denies any dysuria, hematuria, pelvic pain, fever/chills/sweats. She states the discharge is white in color and has a strong odor. She admits to history of BV and states her symptoms seem to be consistent with BV. Patient also admits to history of chlamydia. -: Sudden - Related Data Home Medications Medication Instructions Recorded Confirmed Last Taken levETIRAcetam [Keppra TAB] 250 mg PO BID 12/23/18 12/23/18 Unknown Previous Rx's Medication Instructions Recorded Last Taken Type levETIRAcetam [Keppra TAB] 500 mg PO BID 30 Days #60 tablet 12/23/18 Unknown Rx Zolpidem [Ambien] 5 mg PO QHS PRN #10 tablet 01/02/19 Unknown Rx Zolpidem [Ambien] 5 mg PO QHS PRN #3 tablet 04/14/19 Unknown Rx metroNIDAZOLE [Flagyl] 500 mg PO Q12HR 7 Days #14 tab 06/28/19 Unknown Rx Allergies Allergy/AdvReac Type Severity Reaction Status Date / Time No Known Allergies Allergy Verified 06/28/19 15:32 ED Review of Systems ROS: Stated complaint: VAGINAL INFECTION Other details as noted in HPI Constitutional: denies: chills, fever Gastrointestinal: denies: abdominal pain, nausea, vomiting Genitourinary: discharge. denies: urgency, dysuria, frequency, hematuria, abnormal menses, dyspareunia Musculoskeletal: denies: joint swelling, arthralgia, myalgia Skin: denies: rash, lesions, change in color, pruritus ED Past Medical Hx - Past Medical History Hx Hypertension: Yes Hx Heart Attack/AMI: Yes Hx Seizures: Yes Additional medical history: anxiety - Social History Smoking Status: Never Smoker Substance Use Type: None - Medications Home Medications: Home Medications Medication Instructions Recorded Confirmed Last Taken Type levETIRAcetam [Keppra TAB] 250 mg PO BID 12/23/18 12/23/18 Unknown History levETIRAcetam [Keppra TAB] 500 mg PO BID 30 Days #60 tablet 12/23/18 Unknown Rx Zolpidem [Ambien] 5 mg PO QHS PRN #10 tablet 01/02/19 Unknown Rx Zolpidem [Ambien] 5 mg PO QHS PRN #3 tablet 04/14/19 Unknown Rx metroNIDAZOLE [Flagyl] 500 mg PO Q12HR 7 Days #14 tab 06/28/19 Unknown Rx ED Physical Exam - General Limitations: No Limitations General appearance: alert, in no apparent distress - Head Head exam: Present: atraumatic, normocephalic - Eye Eye exam: Present: normal appearance - Respiratory Respiratory exam: Absent: respiratory distress - Cardiovascular Cardiovascular Exam: Present: regular rate - GI/Abdominal GI/Abdominal exam: Present: soft. Absent: distended, tenderness, guarding, rebound, rigid - External exam: Present: normal external exam Speculum exam: Present: vaginal discharge (White/greenish in color with no). Absent: erythema, cervical discharge, vaginal bleeding Bi-manual exam: Absent: cervical motion tendernes, adnexal tenderness, adnexal mass - Back Exam Back exam: Present: full ROM - Neurological Exam Neurological exam: Present: alert, oriented X3 - Psychiatric Psychiatric exam: Present: normal affect, normal mood - Skin Skin exam: Present: warm, dry, intact, normal color. Absent: rash ED Course Vital Signs 06/28/19 16:10 Temperature 98.2 F Pulse Rate 80 Respiratory 18 Rate Blood Pressure 159/100 [Right] O2 Sat by Pulse 100 Oximetry ED Medical Decision Making - Medical Decision Making 33-year-old -[place] female presents with complaints of vaginal discharge 2 days. She denies any dysuria, hematuria, pelvic pain, fever/chills/sweats. No cervical motion tenderness noted on pelvic exam. Wet prep is positive for bacterial vaginosis. Vitals are normal and patient is nontoxic-appearing. Patient is stable for discharge home with treatment for BV. Recommend follow-up with primary care provider. Prescription for Flagyl given Critical care attestation.: If time is entered above; I have spent that time in minutes in the direct care of this critically ill patient, excluding procedure time. ED Disposition Clinical Impression: Bacterial vaginosis Disposition: MED SCREENING EXAM-CONT Is pt being admited?: No Condition: Stable Instructions: Bacterial Vaginosis (ED) Prescriptions: metroNIDAZOLE [Flagyl] 500 mg PO Q12HR 7 Days #14 tab Referrals: PRIMARY CARE, [Primary Care Provider] - 3-5 Days Forms: STI Treatment and Prevention
== END 2019-06-28 23:25 | disposition home or self-care (01) ==
LOC: ED 15:31
DX: N76.0 Acute vaginitis (principal); B96.89 Other specified bacterial agents as the cause of diseases classified elsewhere; I10 Essential (primary) hypertension; I25.2 Old myocardial infarction; F41.9 Anxiety disorder, unspecified; Z79.899 Other long term (current) drug therapy
CPT/HCPCS: 81001; 81025; 87210; 87591

== ENCOUNTER 2019-08-05 18:31 | Emergency (ER) | payer OTHER ==
[2019-08-05 19:28] LABS: Basophils % (Auto) 0.8 % (0.0-1.8); Eosinophils % (Auto) 0.5 % (0.0-4.3); Hematocrit 42.2 % (30.3-42.9); Hemoglobin 13.8 gm/dl (10.1-14.3); Lymphocytes # (Auto) 1.5 K/mm3 (1.2-5.4); Lymphocytes % (Auto) 45.5 % (13.4-35.0); Mean Corpuscular HGB Conc 33 % (30-34); Mean Corpuscular Volume 85 fl (79-97); Monocytes # (Auto) 0.5 K/mm3 (0.0-0.8); Monocytes % (Auto) 14.5 % (0.0-7.3); Platelet Count 233 K/mm3 (140-440); Red Blood Count 4.96 M/mm3 (3.65-5.03); Red Cell Distribution Width 14.9 % (13.2-15.2)
[2019-08-05 19:46] LABS: BUN/Creatinine Ratio 15; Blood Urea Nitrogen 12 mg/dL (7-17); Calcium 8.7 mg/dL (8.4-10.2); Hemolysis Index 2
--- NOTE | 2019-08-05 19:55 | Emergency Department Report ---
ED Seizure HPI - General Chief Complaint: Seizure Stated Complaint: SEIZURE Time Seen by Provider: 08/05/19 19:03 Source: patient Mode of arrival: Ambulatory Limitations: No Limitations - History of Present Illness Initial Comments: 33-year-old female with history of seizures presents to ED with tremors of her legs. Patient reports she is having uncontrollable movements in her legs that have been intermittent over the last 2 weeks. Patient reports she had an EEG done at [place] 1 week ago. Mother reports sometimes patient is unable to move her legs and sometimes she is unable to stop the movement in her legs. When I asked patient why she is here in the ED, she has her eyes closed, sitting still in the stretcher, and yelling out, "For this!" When I asked for what, patient seems to be exasperated and does not elaborate. History is given by patient's mother who is at bedside. Patient is unsure of her current seizure medication, but states that it is new, after being taken off of Keppra. Mother states patient has been under lots of stress at work. She denies alcohol or drug use. Complaint: shaking -: This evening Witnessed:: Yes Trauma: No Place: home Associated Symptoms: denies: chest pain, cough, fever/chills, shortness of breath - Related Data Home Medications Medication Instructions Recorded Confirmed Last Taken levETIRAcetam [Keppra TAB] 250 mg PO BID 12/23/18 12/23/18 Unknown Previous Rx's Medication Instructions Recorded Last Taken Type levETIRAcetam [Keppra TAB] 500 mg PO BID 30 Days #60 tablet 12/23/18 Unknown Rx Zolpidem [Ambien] 5 mg PO QHS PRN #10 tablet 01/02/19 Unknown Rx Zolpidem [Ambien] 5 mg PO QHS PRN #3 tablet 04/14/19 Unknown Rx metroNIDAZOLE [Flagyl] 500 mg PO Q12HR 7 Days #14 tab 06/28/19 Unknown Rx Allergies Allergy/AdvReac Type Severity Reaction Status Date / Time No Known Allergies Allergy Verified 06/28/19 15:32 ED Review of Systems ROS: Stated complaint: SEIZURE Other details as noted in HPI Comment: All other systems reviewed and negative Constitutional: denies: fever Respiratory: denies: shortness of breath Cardiovascular: denies: chest pain Gastrointestinal: denies: abdominal pain Neurological: denies: headache ED Past Medical Hx - Past Medical History Previous Medical History?: Yes Hx Hypertension: Yes Hx Heart Attack/AMI: Yes Hx Seizures: Yes Additional medical history: anxiety - Surgical History Past Surgical History?: No - Social History Smoking Status: Never Smoker Substance Use Type: None - Medications Home Medications: Home Medications Medication Instructions Recorded Confirmed Last Taken Type levETIRAcetam [Keppra TAB] 250 mg PO BID 12/23/18 12/23/18 Unknown History levETIRAcetam [Keppra TAB] 500 mg PO BID 30 Days #60 tablet 12/23/18 Unknown Rx Zolpidem [Ambien] 5 mg PO QHS PRN #10 tablet 01/02/19 Unknown Rx Zolpidem [Ambien] 5 mg PO QHS PRN #3 tablet 04/14/19 Unknown Rx metroNIDAZOLE [Flagyl] 500 mg PO Q12HR 7 Days #14 tab 06/28/19 Unknown Rx ED Physical Exam - General Limitations: No Limitations General appearance: alert, in no apparent distress - Head Head exam: Present: atraumatic, normocephalic - Eye Eye exam: Present: normal appearance - ENT ENT exam: Present: mucous membranes moist - Neck Neck exam: Present: normal inspection - Respiratory Respiratory exam: Present: normal lung sounds bilaterally. Absent: respiratory distress - Cardiovascular Cardiovascular Exam: Present: normal rhythm, tachycardia - GI/Abdominal GI/Abdominal exam: Present: soft. Absent: distended, tenderness - Extremities Exam Extremities exam: Present: normal inspection, full ROM - Neurological Exam Neurological exam: Present: alert, oriented X3, other (No seizure activity noted, no tremors noted, patient laying back on stretcher with knees flexed position and will occasionally continuously flex and extend her legs at the knee s; patient stops this movement when told to stop) - Psychiatric Psychiatric exam: Present: other (bizarre affect, pt using "baby talk" to speak, blowing bubbles with her mouth) - Skin Skin exam: Present: warm, dry, intact, normal color ED Course Vital Signs 08/05/19 08/05/19 08/05/19 18:41 21:16 22:27 Temperature 98.6 F 98.2 F Pulse Rate 116 H 103 H 86 Respiratory 16 20 Rate Blood Pressure 103/85 Blood Pressure 125/53 [Left] O2 Sat by Pulse 100 98 Oximetry - Reevaluation(s) Reevaluation #1: 08/05/19 21:31 Patient now states that her seizure medication is lamotrigine. Also reports that she has been diagnosed with conversion disorder. Spoke w/ mother privately. She states pt has been referred to a psychiatrist and they are currently trying to set up an appt for her. Mother states pt's had a particularly stressful day at work on yesterday which likely triggered pt's symptoms today. ED Medical Decision Making - Lab Data Result diagrams: 08/05/19 19:07 08/05/19 19:07 - Medical Decision Making False-positive PCP likely due to the lamotrigine that patient takes. Critical care attestation.: If time is entered above; I have spent that time in minutes in the direct care of this critically ill patient, excluding procedure time. ED Disposition Clinical Impression: Conversion disorder, Hypokalemia Disposition: DC-01 TO HOME OR SELFCARE Is pt being admited?: No Condition: Stable Instructions: Non-epileptic Seizures (ED) Referrals: PRIMARY CAREMD [Primary Care Provider] - 3-5 Days [facility] [Outside] - 3-5 Days Forms: Work/School Release Form(ED) Time of Disposition: 21:53
[2019-08-05] MEDS ORDERED: POTASSIUM CHLORIDE ER 20 MEQ TAB PO ONE (20:29)
[2019-08-05 21:20] LABS: Bilirubin,Urine NEG (Negative); Blood,Urine MOD (Negative); Color,Urine Yellow (Yellow); Mucus,Urine FEW /HPF; Protein,Urine <15 mg/dL mg/dL (Negative); Urobilinogen,Urine < 2.0 mg/dL (<2.0)
[2019-08-05 21:22] LABS: Amphetamine Screen,Urine PRESUMPTIVE NEGATIVE; Benzodiazepines Screen,Urine PRESUMPTIVE NEGATIVE; Cannabinoid Screen,Urine PRESUMPTIVE NEGATIVE; Cocaine Screen,Urine PRESUMPTIVE NEGATIVE; Methadone Screen,Urine PRESUMPTIVE NEGATIVE; Opiate Screen,Urine PRESUMPTIVE NEGATIVE
[2019-08-05 21:29] VITALS: BP 125/53
[2019-08-05] MEDS ORDERED: LORazepam 2 MG/ML VIAL IV ONE (21:30)
== END 2019-08-05 22:28 | disposition home or self-care (01) ==
LOC: ED 18:31
DX: F44.89 Other dissociative and conversion disorders (principal); E87.6 Hypokalemia; I10 Essential (primary) hypertension; I25.2 Old myocardial infarction; F41.9 Anxiety disorder, unspecified; Z79.899 Other long term (current) drug therapy
CPT/HCPCS: 36415; 80048; 80307; 81001; 84703; 85025; 96374; 99283; J2060; 80320; G0480

== ENCOUNTER 2020-11-23 15:23 | Emergency (ER) | payer OTHER ==
[2020-11-23 15:28] VITALS: BP 170/96
[2020-11-23] MEDS ORDERED: ONDANSETRON 4 MG ODT TAB PO ONE (16:48)
--- NOTE | 2020-11-23 17:03 | Emergency Department Report ---
ED Headache HPI - General Chief Complaint: Headache Stated Complaint: 5WKS PREG/HEADACHE/NAUSEA Time Seen by Provider: 11/23/20 16:46 Source: patient - History of Present Illness Initial Comments: 35-year-old -[place] female who is 3 para 1 comes in reporting she is 5 weeks complains of nausea and headache for 1 week. Patient denies any photophobia. Patient states that she took ibuprofen but vomited up. Patient states that her headache prevents her from sleeping. She reports her last menstrual period was October 11, 2020. Denies any vaginal bleeding no vaginal discharge no pelvic pain. Patient reports that [facility] She reports they told her her due date was July 18, 2021. Allergies/Adverse Reactions: Allergies No Known Allergies Allergy (Verified 06/28/19 15:32) Home Medications: Ambulatory Orders levETIRAcetam [Keppra TAB] 250 mg PO BID 12/23/18 levETIRAcetam [Keppra TAB] 500 mg PO BID 30 Days #60 tablet 12/23/18 Zolpidem [Ambien] 5 mg PO QHS PRN #10 tablet 01/02/19 Zolpidem [Ambien] 5 mg PO QHS PRN #3 tablet 04/14/19 metroNIDAZOLE [Flagyl] 500 mg PO Q12HR 7 Days #14 tab 06/28/19 Ondansetron [Zofran Odt] 4 mg PO Q8HR PRN #12 tab.rapdis 11/23/20 ED Review of Systems ROS: Stated complaint: 5WKS PREG/HEADACHE/NAUSEA Other details as noted in HPI ED Past Medical Hx - Past Medical History Previous Medical History?: Yes Hx Hypertension: Yes Hx Heart Attack/AMI: Yes Hx Seizures: Yes Additional medical history: anxiety - Surgical History Past Surgical History?: No - Social History Smoking Status: Never Smoker Substance Use Type: None - Medications Home Medications: Home Medications Medication Instructions Recorded Confirmed Last Taken Type levETIRAcetam [Keppra TAB] 250 mg PO BID 12/23/18 12/23/18 Unknown History levETIRAcetam [Keppra TAB] 500 mg PO BID 30 Days #60 tablet 12/23/18 Unknown Rx Zolpidem [Ambien] 5 mg PO QHS PRN #10 tablet 01/02/19 Unknown Rx Zolpidem [Ambien] 5 mg PO QHS PRN #3 tablet 04/14/19 Unknown Rx metroNIDAZOLE [Flagyl] 500 mg PO Q12HR 7 Days #14 tab 06/28/19 Unknown Rx Ondansetron [Zofran Odt] 4 mg PO Q8HR PRN #12 tab.megdis 11/23/20 Unknown Rx ED Physical Exam - General Limitations: No Limitations ED Course Vital Signs 11/23/20 15:28 Temperature 99.2 F Pulse Rate 72 Respiratory 12 Rate Blood Pressure 170/96 O2 Sat by Pulse 100 Oximetry - Reevaluation(s) Reevaluation #1: 11/23/20 17:59 Patient reports she feels much better after having Zofran. ED Medical Decision Making - Medical Decision Making 35-year-old -[place] female who is 3 para 1 comes in reporting she is 5 weeks complains of nausea and headache for 1 week. Patient denies any photophobia. Patient states that she took ibuprofen but vomited up. Patient states that her headache prevents her from sleeping. She reports her last menstrual period was October 11, 2020. Denies any vaginal bleeding no vaginal discharge no pelvic pain. Patient reports that she [facility]. She reports they told her her due date was July 18, 2021. Critical care attestation.: If time is entered above; I have spent that time in minutes in the direct care of this critically ill patient, excluding procedure time. ED Disposition Clinical Impression: Nausea Headache Qualifiers: Headache type: unspecified Headache chronicity pattern: acute headache Intractability: intractable Qualified Code(s): R51.9 - Headache, unspecified Qualifiers: Weeks of gestation: less than 8 weeks Qualified Code(s): Z3A.01 - Less than 8 weeks gestation of Disposition: -01 TO HOME OR SELFCARE Is pt being admited?: No Does the pt Need Aspirin: No Condition: Stable Instructions: Nausea, Adult, [id number] Additional Instructions: Zofran as needed for nausea and vomiting. Tylenol for headaches pain and fevers. Be sure to increase your fluid intake advance your diet as tolerated. You can also try [id number] lindsey root as this helps with nausea. Follow-up with your [facility]. Prescriptions: Ondansetron [Zofran Odt] 4 mg PO Q8HR PRN #12 tab.rapdis PRN Reason: Nausea And Vomiting Referrals: [facility] [Provider Group] - 3-5 Days Forms: Work/School Release Form(ED)
[2020-11-23] MEDS ORDERED: ACETAMINOPHEN 500 MG TAB PO ONE (17:59)
== END 2020-11-23 18:25 | disposition home or self-care (01) ==
LOC: ED 15:23
DX: O26.891 Other specified pregnancy related conditions, first trimester (principal); R51.9 Headache, unspecified; R11.0 Nausea; F41.9 Anxiety disorder, unspecified; I10 Essential (primary) hypertension; Z86.69 Personal history of other diseases of the nervous system and sense organs; Z98.890 Other specified postprocedural states; Z79.899 Other long term (current) drug therapy; Z3A.01 Less than 8 weeks gestation of pregnancy
CPT/HCPCS: 99282; Q0162

== ENCOUNTER 2021-01-11 16:09 | Emergency (ER) | payer OTHER ==
[2021-01-11] MEDS ORDERED: ACETAMINOPHEN 500 MG TAB PO ONE (18:18)
--- NOTE | 2021-01-11 19:01 | XRay Report ---
XR chest routine 2V INDICATION / CLINICAL INFORMATION: cough. COMPARISON: None available. FINDINGS: SUPPORT DEVICES: None. HEART /PULMONARY VASCULATURE: No significant abnormality. LUNGS / PLEURA: No significant pulmonary or pleural abnormality. No pneumothorax. ADDITIONAL FINDINGS: No significant additional findings. IMPRESSION: 1. No acute findings. Signer Name: Ehsan Campbell MD Signed: 01/11/2021 6:57 PM Workstation Name: [id number]
--- NOTE | 2021-01-11 20:09 | Emergency Department Report ---
- General Chief Complaint: Dyspnea/Respdistress Stated Complaint: NO SMELL/TASTE/CONGESTION Time Seen by Provider: 01/11/21 18:18 Source: patient Mode of arrival: Ambulatory Limitations: No Limitations - History of Present Illness Initial Comments: This is a 35-year-old female nontoxic, well nourished in appearance, no acute signs of distress presents to the ED with c/o of productive cough, fever, chills, body aches, rhinorrhea, nasal congestion x several days. Patient denies having COVID vaccine. Patient describes productive cough as yellow mucus production. Patient denies any sick contacts. Patient denies any recent travels, long car, recent hospital stays. Patient denies any calf pain or calf tenderness. Patient denies any chest pain, short of breath, nausea, vomiting, hemoptysis, numbness, tingling, headache or stiff neck. Patient denies any allergies. MD Complaint: fever, cough, rhinorrhea, nasal congestion -: days(s) Severity: mild Severity scale (0 -10): 3 Quality: aching Consistency: constant Improves With: nothing Worsens With: nothing Associated Symptoms: fever, chills, rhinorrhea, nasal congestion, cough. denies: myalgias, diaphoresis, headache, sore throat, stiff neck, chest pain, shortness of breath, abdominal pain, nausea, vomiting, diarrhea, dysuria, rash, confusion, right sweats, weight loss, epistaxis, hoarseness, ear pain Treatments Prior to Arrival: none - Related Data Home Medications Medication Instructions Recorded Confirmed Last Taken levETIRAcetam [Keppra TAB] 250 mg PO BID 12/23/18 12/23/18 Unknown Previous Rx's Medication Instructions Recorded Last Taken Type levETIRAcetam [Keppra TAB] 500 mg PO BID 30 Days #60 tablet 12/23/18 Unknown Rx Zolpidem [Ambien] 5 mg PO QHS PRN #10 tablet 01/02/19 Unknown Rx Zolpidem [Ambien] 5 mg PO QHS PRN #3 tablet 04/14/19 Unknown Rx metroNIDAZOLE [Flagyl] 500 mg PO Q12HR 7 Days #14 tab 06/28/19 Unknown Rx Ondansetron [Zofran Odt] 4 mg PO Q8HR PRN #12 tab.rapdis 11/23/20 Unknown Rx Acetaminophen [Acetaminophen 8 650 mg PO Q8H PRN #12 tablet.er 01/11/21 Unknown Rx Hour] Benzonatate [Tessalon Perles] 100 mg PO Q8HR PRN #12 capsule 01/11/21 Unknown Rx Allergies Allergy/AdvReac Type Severity Reaction Status Date / Time No Known Allergies Allergy Verified 06/28/19 15:32 ED Review of Systems ROS: Stated complaint: NO SMELL/TASTE/CONGESTION Other details as noted in HPI Constitutional: chills, fever Eyes: denies: eye pain, eye discharge, vision change ENT: congestion. denies: ear pain, throat pain Respiratory: cough. denies: shortness of breath, wheezing Cardiovascular: denies: chest pain, palpitations Endocrine: no symptoms reported Gastrointestinal: denies: abdominal pain, nausea, diarrhea Genitourinary: denies: urgency, dysuria, discharge Musculoskeletal: denies: back pain, joint swelling, arthralgia Skin: denies: rash, lesions Neurological: denies: headache, weakness, paresthesias Psychiatric: denies: anxiety, depression Hematological/Lymphatic: denies: easy bleeding, easy bruising ED Past Medical Hx - Past Medical History Previous Medical History?: Yes Hx Hypertension: Yes Hx Heart Attack/AMI: Yes Hx Seizures: Yes Additional medical history: anxiety - Surgical History Past Surgical History?: No - Social History Smoking Status: Never Smoker Substance Use Type: None - Medications Home Medications: Home Medications Medication Instructions Recorded Confirmed Last Taken Type levETIRAcetam [Keppra TAB] 250 mg PO BID 12/23/18 12/23/18 Unknown History levETIRAcetam [Keppra TAB] 500 mg PO BID 30 Days #60 tablet 12/23/18 Unknown Rx Zolpidem [Ambien] 5 mg PO QHS PRN #10 tablet 01/02/19 Unknown Rx Zolpidem [Ambien] 5 mg PO QHS PRN #3 tablet 04/14/19 Unknown Rx metroNIDAZOLE [Flagyl] 500 mg PO Q12HR 7 Days #14 tab 06/28/19 Unknown Rx Ondansetron [Zofran Odt] 4 mg PO Q8HR PRN #12 tab.rapdis 11/23/20 Unknown Rx Acetaminophen [Acetaminophen 8 650 mg PO Q8H PRN #12 tablet.er 01/11/21 Unknown Rx Hour] Benzonatate [Tessalon Perles] 100 mg PO Q8HR PRN #12 capsule 01/11/21 Unknown Rx ED Physical Exam - General Limitations: No Limitations General appearance: alert, in no apparent distress - Head Head exam: Present: atraumatic, normocephalic - Eye Eye exam: Present: normal appearance - ENT ENT exam: Present: normal exam, normal orophraynx - Neck Neck exam: Present: normal inspection, full ROM. Absent: tenderness, meningismus, lymphadenopathy - Respiratory Respiratory exam: Present: normal lung sounds bilaterally. Absent: respiratory distress, wheezes, rales, rhonchi, stridor, chest wall tenderness, accessory muscle use, decreased breath sounds, prolonged expiratory - Cardiovascular Cardiovascular Exam: Present: regular rate, normal rhythm, tachycardia, normal heart sounds. Absent: irregular rhythm, systolic murmur, diastolic murmur, rubs, gallop - GI/Abdominal GI/Abdominal exam: Present: soft, normal bowel sounds. Absent: distended, tenderness, guarding, rebound, rigid, diminished bowel sounds - Extremities Exam Extremities exam: Present: full ROM - Back Exam Back exam: Present: full ROM - Neurological Exam Neurological exam: Present: alert, oriented X3, normal gait - Psychiatric Psychiatric exam: Present: normal affect, normal mood - Skin Skin exam: Present: warm, dry, intact, normal color. Absent: rash ED Course Vital Signs 01/11/21 01/11/21 01/11/21 18:17 20:37 20:39 Temperature 101.0 F H 99.9 F H Pulse Rate 96 H 90 Respiratory 20 12 Rate Blood Pressure 149/112 145/108 O2 Sat by Pulse 99 100 Oximetry 01/11/21 20:40 Temperature 99.9 F H Pulse Rate 90 Respiratory Rate Blood Pressure O2 Sat by Pulse Oximetry - Reevaluation(s) Reevaluation #1: 01/11/21 20:08 Patient is speaking in full sentences with no signs of distress noted. ED Medical Decision Making - Radiology Data [facility] [address] [place] [address] XRay Report Signed Patient: JEN GIBSON MR#: [id number] : 1985 Acct:[id number] Age/Sex: 35 / F ADM Date: 01/11/21 Loc: ED Attending Dr: Ordering Physician: JERRI PUGA NP Date of Service: 01/11/21 Procedure(s): XR chest routine 2V Accession Number(s): [id number] cc: JERRI PUGA NP Fluoro Time In Minutes: XR chest routine 2V INDICATION / CLINICAL INFORMATION: cough. COMPARISON: None available. FINDINGS: SUPPORT DEVICES: None. HEART /PULMONARY VASCULATURE: No significant abnormality. LUNGS / PLEURA: No significant pulmonary or pleural abnormality. No pneumothorax. ADDITIONAL FINDINGS: No significant additional findings. IMPRESSION: 1. No acute findings. Signer Name: Nyla Campbell MD Signed: 01/11/2021 6:57 PM Workstation Name: [id number] Transcribed By: SHARMIN Dictated By: NYLA CAMPBELL MD Electronically Authenticated By: NYLA CAMPBELL MD Signed Date/Time: 01/11/211856 DD/ 55 TD/TT: - Medical Decision Making This is a 35-year-old female that presents with suspected Covid. Patient is stable and was examined by me. Chest x-ray has been obtained and dictated by radiologist with normal exam. Patient is notified of x-ray results with no questions noted. Patient does meet clinical concerns of COVID-19 but patient was instructed and educated on signs and symptoms and to self quarantine and seek medical attention as soon as possible if symptoms if symptoms worsen and continue. Patient recieved Tylenol in the ED. Patient was instructed to increase hydration, rest and take Tylenol for fever episodes. Patient is nonfebrile and normal heart rate. Patient was instructed Follow-up with a primary care doctor in 3-5 days or if symptoms worsen and continue return to emergency room as soon as possible. At time time of discharge, the patient does not seem toxic or ill in appearance. No acute signs of distress noted. Patient agrees to discharge treatment plan of care. No further questions noted by the patient.nt. Critical care attestation.: If time is entered above; I have spent that time in minutes in the direct care of this critically ill patient, excluding procedure time. ED Disposition Clinical Impression: Suspected COVID-19 virus infection Disposition: HOME / SELF CARE / HOMELESS Is pt being admited?: No Does the pt Need Aspirin: No Condition: Stable Instructions: COVID-19 Frequently Asked Questions, COVID-19, COVID-19: How to Protect Yourself and Others - [facility] Additional Instructions: Follow-up with a primary care doctor in 3-5 days or if symptoms worsen and continue return to emergency room as soon as possible. As educated and instructed to you must self quarantine yourself and people that you have been in close contact with similar symptoms for the next 14 days. Please see your nearest health department or primary care doctor that you are referred to for COVID testing. Increased rest, hydration, and take Tylenol as prescribed for fever episode. Return to work at your work policy due to possible Covid. Prescriptions: Acetaminophen [Acetaminophen 8 Hour] 650 mg PO Q8H PRN #12 tablet.er PRN Reason: Fever >101 Benzonatate [Tessalon Perles] 100 mg PO Q8HR PRN #12 capsule PRN Reason: Cough Referrals: MONA SOLOMON PA [Primary Care Provider] - 3-5 Days PRIMARY CAREMD [Referring] - 3-5 Days LAKSHMI MCCLENDON MD [Staff Physician] - 3-5 Days Forms: Work/School Release Form(ED) Time of Disposition: 20:10
[2021-01-11 20:38] VITALS: BP 145/108
== END 2021-01-11 20:49 | disposition home or self-care (01) ==
LOC: ED 16:09
DX: R05 Cough (principal); R50.9 Fever, unspecified; R09.81 Nasal congestion; R43.9 Unspecified disturbances of smell and taste; I10 Essential (primary) hypertension; I25.2 Old myocardial infarction; F41.9 Anxiety disorder, unspecified; Z20.822 Contact with and (suspected) exposure to COVID-19; Z79.899 Other long term (current) drug therapy; Z86.69 Personal history of other diseases of the nervous system and sense organs
CPT/HCPCS: 71046

== ENCOUNTER 2021-04-20 11:01 | Emergency (ER) | payer OTHER ==
[2021-04-20 11:08] VITALS: BP 120/48
[2021-04-20 12:11] LABS: Basophils % (Auto) 0.8 % (0.0-1.8); Eosinophils # (Auto) 0.1 K/mm3 (0.0-0.4); Hematocrit 34.6 % (30.3-42.9); Hemoglobin 10.6 gm/dl (10.1-14.3); Lymphocytes # (Auto) 1.3 K/mm3 (1.2-5.4); Lymphocytes % (Auto) 43.1 % (13.4-35.0); Mean Corpuscular HGB Conc 31 % (30-34); Mean Corpuscular Volume 79 fl (79-97); Monocytes # (Auto) 0.4 K/mm3 (0.0-0.8); Monocytes % (Auto) 13.1 % (0.0-7.3); Platelet Count 170 K/mm3 (140-440); Red Blood Count 4.39 M/mm3 (3.65-5.03); Red Cell Distribution Width 19.6 % (13.2-15.2)
[2021-04-20 12:31] LABS: Alanine Aminotransferase 11 units/L (7-56); Albumin 3.5 g/dL (3.9-5); BUN/Creatinine Ratio 23; Blood Urea Nitrogen 14 mg/dL (7-17); Calcium 8.2 mg/dL (8.4-10.2); Hemolysis Index 9
--- NOTE | 2021-04-20 12:48 | XRay Report ---
LEFT HIP 2 VIEWS INDICATION / CLINICAL INFORMATION: left hip pain COMPARISON: None available. FINDINGS: BONES and JOINT(S): No acute fracture or subluxation. No significant arthritis. SOFT TISSUES: No significant abnormality. ADDITIONAL FINDINGS: None. IMPRESSION: 1. No acute findings. Signer Name: Hilario Fan MD Signed: 04/20/2021 12:44 PM Workstation Name: [id number]
[2021-04-20 12:49] LABS: Bacteria,Urine 1+ /HPF (Negative); Bilirubin,Urine NEG (Negative); Blood,Urine NEG (Negative); Color,Urine Yellow (Yellow); Mucus,Urine FEW /HPF; Protein,Urine <15 mg/dL mg/dL (Negative); Urobilinogen,Urine < 2.0 mg/dL (<2.0)
--- NOTE | 2021-04-20 13:20 | Emergency Department Report ---
ED Dizziness HPI - General Chief Complaint: Dizziness Stated Complaint: dizziness Time Seen by Provider: 04/20/21 11:19 Source: patient Mode of arrival: Ambulatory Limitations: No Limitations - History of Present Illness Initial Comments: Patient is a 35-year-old female presents emergency room complaints of dizziness/lightheadedness that began 2 days ago patient reports that she had unwitnessed seizure-like activity 2 days ago. She states that she hit her hip and now is having left hip pain. Patient was previously on lamotrigine but she reports that she was taken off medication. It appears based on previous history she has been diagnosed with conversion disorder. She denies any headache, vision changes, numbness, weakness, bowel or bladder incontinence, speech disturbance, gait disturbance, fever, vomiting, diarrhea, urinary symptoms. No allergies to medications. - Related Data Home Medications Medication Instructions Recorded Confirmed Last Taken levETIRAcetam [Keppra TAB] 250 mg PO BID 12/23/18 12/23/18 Unknown Previous Rx's Medication Instructions Recorded Last Taken Type levETIRAcetam [Keppra TAB] 500 mg PO BID 30 Days #60 tablet 12/23/18 Unknown Rx Zolpidem [Ambien] 5 mg PO QHS PRN #10 tablet 01/02/19 Unknown Rx Zolpidem [Ambien] 5 mg PO QHS PRN #3 tablet 04/14/19 Unknown Rx metroNIDAZOLE [Flagyl] 500 mg PO Q12HR 7 Days #14 tab 06/28/19 Unknown Rx Ondansetron [Zofran Odt] 4 mg PO Q8HR PRN #12 tab.rapdis 11/23/20 Unknown Rx Acetaminophen [Acetaminophen 8 650 mg PO Q8H PRN #12 tablet.er 01/11/21 Unknown Rx Hour] Benzonatate [Tessalon Perles] 100 mg PO Q8HR PRN #12 capsule 01/11/21 Unknown Rx Allergies Allergy/AdvReac Type Severity Reaction Status Date / Time No Known Allergies Allergy Verified 06/28/19 15:32 ED Review of Systems ROS: Stated complaint: dizziness Other details as noted in HPI Comment: All other systems reviewed and negative ED Past Medical Hx - Past Medical History Hx Hypertension: Yes Hx Heart Attack/AMI: Yes Hx Seizures: Yes Additional medical history: anxiety - Social History Smoking Status: Never Smoker Substance Use Type: None - Medications Home Medications: Home Medications Medication Instructions Recorded Confirmed Last Taken Type levETIRAcetam [Keppra TAB] 250 mg PO BID 12/23/18 12/23/18 Unknown History levETIRAcetam [Keppra TAB] 500 mg PO BID 30 Days #60 tablet 12/23/18 Unknown Rx Zolpidem [Ambien] 5 mg PO QHS PRN #10 tablet 01/02/19 Unknown Rx Zolpidem [Ambien] 5 mg PO QHS PRN #3 tablet 04/14/19 Unknown Rx metroNIDAZOLE [Flagyl] 500 mg PO Q12HR 7 Days #14 tab 06/28/19 Unknown Rx Ondansetron [Zofran Odt] 4 mg PO Q8HR PRN #12 tab.rapdis 11/23/20 Unknown Rx Acetaminophen [Acetaminophen 8 650 mg PO Q8H PRN #12 tablet.er 01/11/21 Unknown Rx Hour] Benzonatate [Tessalon Perles] 100 mg PO Q8HR PRN #12 capsule 01/11/21 Unknown Rx ED Physical Exam - General Limitations: No Limitations General appearance: alert, in no apparent distress - Head Head exam: Present: atraumatic, normocephalic - Eye Eye exam: Present: normal appearance, PERRL, EOMI - ENT ENT exam: Present: mucous membranes moist - Respiratory Respiratory exam: Present: normal lung sounds bilaterally. Absent: respiratory distress, wheezes, rales, rhonchi, stridor, chest wall tenderness, accessory muscle use, decreased breath sounds, prolonged expiratory - Cardiovascular Cardiovascular Exam: Present: regular rate, normal rhythm, normal heart sounds. Absent: systolic murmur, diastolic murmur, rubs, gallop - Neurological Exam Neurological exam: Present: alert, oriented X3, CN II-XII intact, normal gait. Absent: motor sensory deficit - Psychiatric Psychiatric exam: Present: normal affect, normal mood - Skin Skin exam: Present: warm, dry, intact ED Course Vital Signs 04/20/21 11:06 Temperature 98.3 F Pulse Rate 77 Respiratory 18 Rate Blood Pressure 120/48 O2 Sat by Pulse 100 Oximetry ED Medical Decision Making - Lab Data Result diagrams: 04/20/21 11:55 04/20/21 11:55 Lab Results 04/20/21 04/20/21 04/20/21 Range/Units 11:55 11:55 11:55 WBC 3.1 L (4.5-11.0) K/mm3 RBC 4.39 (3.65-5.03) M/mm3 Hgb 10.6 (10.1-14.3) gm/dl Hct 34.6 (30.3-42.9) % MCV 79 (79-97) fl MCH 24 L (28-32) pg MCHC 31 (30-34) % RDW 19.6 H (13.2-15.2) % Plt Count 170 (140-440) K/mm3 Lymph % (Auto) 43.1 H (13.4-35.0) % Robertson % (Auto) 13.1 H (0.0-7.3) % Eos % (Auto) 2.0 (0.0-4.3) % Baso % (Auto) 0.8 (0.0-1.8) % Lymph # (Auto) 1.3 (1.2-5.4) K/mm3 Robertson # (Auto) 0.4 (0.0-0.8) K/mm3 Eos # (Auto) 0.1 (0.0-0.4) K/mm3 Baso # (Auto) 0.0 (0.0-0.1) K/mm3 Seg Neutrophils % 41.0 (40.0-70.0) % Seg Neutrophils # 1.3 L (1.8-7.7) K/mm3 Sodium 139 (137-145) mmol/L Potassium 4.6 (3.6-5.0) mmol/L Chloride 106.6 (98-107) mmol/L Carbon Dioxide 24 (22-30) mmol/L Anion Gap 13 mmol/L BUN 14 (7-17) mg/dL Creatinine 0.6 (0.6-1.2) mg/dL Estimated GFR > 60 ml/min BUN/Creatinine Ratio 23 % Glucose 117 H (65-100) mg/dL Calcium 8.2 L (8.4-10.2) mg/dL Magnesium 1.80 (1.7-2.3) mg/dL Total Bilirubin 0.20 (0.1-1.2) mg/dL AST 11 (5-40) units/L ALT 11 (7-56) units/L Alkaline Phosphatase 78 (35-129) units/L Total Creatine Kinase 82 (30-135) units/L Total Protein 6.6 (6.3-8.2) g/dL Albumin 3.5 L (3.9-5) g/dL Albumin/Globulin Ratio 1.1 % HCG, Qual Negative (Negative) Urine Color (Yellow) Urine Turbidity (Clear) Urine pH (5.0-7.0) Ur Specific Rainier (1.003-1.030) Urine Protein (Negative) mg/dL Urine Glucose (UA) (Negative) mg/dL Urine Ketones (Negative) mg/dL Urine Blood (Negative) Urine Nitrite (Negative) Urine Bilirubin (Negative) Urine Urobilinogen (<2.0) mg/dL Ur Leukocyte Esterase (Negative) Urine WBC (Auto) (0.0-6.0) /HPF Urine RBC (Auto) (0.0-6.0) /HPF U Epithel Cells (Auto) (0-13.0) /HPF Urine Bacteria (Auto) (Negative) /HPF Urine Mucus /HPF 04/20/ Range/Units 12:38 WBC (4.5-11.0) K/mm3 RBC (3.65-5.03) M/mm3 Hgb (10.1-14.3) gm/dl Hct (30.3-42.9) % MCV (79-97) fl MCH (28-32) pg MCHC (30-34) % RDW (13.2-15.2) % Plt Count (140-440) K/mm3 Lymph % (Auto) (13.4-35.0) % Robertson % (Auto) (0.0-7.3) % Eos % (Auto) (0.0-4.3) % Baso % (Auto) (0.0-1.8) % Lymph # (Auto) (1.2-5.4) K/mm3 Robertson # (Auto) (0.0-0.8) K/mm3 Eos # (Auto) (0.0-0.4) K/mm3 Baso # (Auto) (0.0-0.1) K/mm3 Seg Neutrophils % (40.0-70.0) % Seg Neutrophils # (1.8-7.7) K/mm3 Sodium (137-145) mmol/L Potassium (3.6-5.0) mmol/L Chloride (98-107) mmol/L Carbon Dioxide (22-30) mmol/L Anion Gap mmol/L BUN (7-17) mg/dL Creatinine (0.6-1.2) mg/dL Estimated GFR ml/min BUN/Creatinine Ratio % Glucose (65-100) mg/dL Calcium (8.4-10.2) mg/dL Magnesium (1.7-2.3) mg/dL Total Bilirubin (0.1-1.2) mg/dL AST (5-40) units/L ALT (7-56) units/L Alkaline Phosphatase (35-129) units/L Total Creatine Kinase (30-135) units/L Total Protein (6.3-8.2) g/dL Albumin (3.9-5) g/dL Albumin/Globulin Ratio % HCG, Qual (Negative) Urine Color Yellow (Yellow) Urine Turbidity Clear (Clear) Urine pH 5.0 (5.0-7.0) Ur Specific Rainier 1.017 (1.003-1.030) Urine Protein <15 mg/dl (Negative) mg/dL Urine Glucose (UA) Neg (Negative) mg/dL Urine Ketones Neg (Negative) mg/dL Urine Blood Neg (Negative) Urine Nitrite Neg (Negative) Urine Bilirubin Neg (Negative) Urine Urobilinogen < 2.0 (<2.0) mg/dL Ur Leukocyte Esterase Neg (Negative) Urine WBC (Auto) 1.0 (0.0-6.0) /HPF Urine RBC (Auto) 1.0 (0.0-6.0) /HPF U Epithel Cells (Auto) < 1.0 (0-13.0) /HPF Urine Bacteria (Auto) 1+ (Negative) /HPF Urine Mucus Few /HPF - EKG Data EKG shows normal: sinus rhythm, axis, intervals, QRS complexes, ST-T waves Rate: normal - Medical Decision Making Patient is a 35-year-old female presents emergency room complaints of dizziness/lightheadedness that began 2 days ago patient reports that she had unwitnessed seizure-like activity 2 days ago. She states that she hit her hip and now is having left hip pain. Patient was previously on lamotrigine but she reports that she was taken off medication. It appears based on previous history she has been diagnosed with conversion disorder. She denies any headache, vision changes, numbness, weakness, bowel or bladder incontinence, speech disturbance, gait disturbance, fever, vomiting, diarrhea, urinary symptoms. No allergies to medications. Vitals are normal. Patient has no focal neuro deficits on exam. EKG is a normal limits. Labs are stable. UA without evidence of UTI. Advised pt Please follow-up with your primary care doctor. Please follow-up with your neurologist. Return to emergency room for any new or worsening symptoms. Critical care attestation.: If time is entered above; I have spent that time in minutes in the direct care of this critically ill patient, excluding procedure time. ED Disposition Clinical Impression: Dizziness, Light-headed Disposition: 01 HOME / SELF CARE / HOMELESS Is pt being admited?: No Does the pt Need Aspirin: No Condition: Stable Instructions: Dizziness Additional Instructions: Please follow-up with your primary care doctor. Please follow-up with your neurologist. Return to emergency room for any new or worsening symptoms. Referrals: LAKSHMI MCCLENDON MD [Staff Physician] - 2-3 Days [facility] [Provider Group] - 2-3 Days GISSELLE WU MD [Staff Physician] - 2-3 Days JULIO CESAR ADORNO MD [Referring] - 2-3 Days Forms: Work/School Release Form(ED) Time of Disposition: 13:42 Print Language: DANISH
--- NOTE | 2021-04-21 18:33 | Electrocardiograph Report ---
[facility] Test Date: 2021-04-20 Test Time: 13:33:08 Pat Name: JEN GIBSON Department: Room: Gender: F Security Professional: HARPREET : 1985 Requested By: ENZO BOATENG Order Number: [id number] Reading MD: Kari Lopez Measurements Intervals [place] Rate: 63 P: -3 NV: 145 QRS: 38 QRSD: 90 T: 47 QT: 455 QTc: 464 Interpretive Statements Sinus rhythm No previous ECG available for comparison Electronically Signed On 04-21-2021 18:33:31 EST by Kari Lopez
== END 2021-04-20 14:02 | disposition home or self-care (01) ==
LOC: ED 11:01
DX: R42 Dizziness and giddiness (principal); F41.9 Anxiety disorder, unspecified; R56.9 Unspecified convulsions
CPT/HCPCS: 36415; 80053; 81001; 82550; 83735; 84703; 85025; 93005; 99283

== ENCOUNTER 2021-05-10 07:03 | Emergency (ER) | payer OTHER ==
[2021-05-10] MEDS ORDERED: ACETAMINOPHEN 325 MG TAB PO PRN (09:01)
[2021-05-10] MEDS ORDERED: ONDANSETRON 4 MG ODT TAB PO PRN (09:01)
--- NOTE | 2021-05-10 09:01 | Emergency Department Report ---
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 The patient states that she is not , and that she has not delivered her given in the past 6 weeks. The patient reports that she is taking her outpatient seizure medication with intermittent compliance ( BRIVIACT) and she reports that she supposed to take it twice daily. She took half a pill yesterday. She was at work today, and was told that she had a convulsive event by her colleagues and coworkers. The patient reports that she had a convulsion a few weeks ago and did not seek medical attention. She reports that her primary neurologist is at [facility]. She reports intolerances to multiple antiepileptic drugs, reporting that many of them cause anxiety, nausea, and generalized body pain. At the moment, the patient denies headache, neck pain, chest pain, abdominal pain, shortness of breath, irritative and obstructive urinary symptoms and cough. She has lower extremity cramping secondary to her "seizure." She reports that she does not use recreational drugs. She also reports that she takes chronic benzodiazepines for her chronic anxiety -: Sudden Consistency: now resolved Improves with: none Worsens with: none - Related Data Home Medications Medication Instructions Recorded Confirmed Last Taken levETIRAcetam [Keppra TAB] 250 mg PO BID 12/23/18 12/23/18 Unknown Previous Rx's Medication Instructions Recorded Last Taken Type levETIRAcetam [Keppra TAB] 500 mg PO BID 30 Days #60 tablet 12/23/18 Unknown Rx Zolpidem [Ambien] 5 mg PO QHS PRN #10 tablet 01/02/19 Unknown Rx Zolpidem [Ambien] 5 mg PO QHS PRN #3 tablet 04/14/19 1 Day Ago Rx ~05/09/21 5 mg metroNIDAZOLE [Flagyl] 500 mg PO Q12HR 7 Days #14 tab 06/28/19 Unknown Rx Ondansetron [Zofran Odt] 4 mg PO Q8HR PRN #12 tab.rapdis 11/23/20 Unknown Rx Acetaminophen [Acetaminophen 8 650 mg PO Q8H PRN #12 tablet.er 01/11/21 Unknown Rx Hour] Benzonatate [Tessalon Perles] 100 mg PO Q8HR PRN #12 capsule 01/11/21 Unknown Rx Allergies Allergy/AdvReac Type Severity Reaction Status Date / Time No Known Allergies Allergy Verified 05/10/21 07:10 ED Review of Systems ROS: Stated complaint: seizure Other details as noted in HPI Constitutional: denies: fever Eyes: denies: eye discharge, vision change ENT: denies: epistaxis Respiratory: denies: cough Cardiovascular: denies: chest pain, syncope Gastrointestinal: denies: abdominal pain Genitourinary: denies: urgency, dysuria, frequency Musculoskeletal: myalgia. denies: back pain Neurological: denies: weakness, numbness, paresthesias Psychiatric: anxiety ED Past Medical Hx - Past Medical History Hx Hypertension: Yes Hx Heart Attack/AMI: Yes Hx Seizures: Yes Additional medical history: anxiety - Surgical History Past Surgical History?: No - Social History Smoking Status: Never Smoker Substance Use Type: None - Medications Home Medications: Home Medications Medication Instructions Recorded Confirmed Last Taken Type levETIRAcetam [Keppra TAB] 250 mg PO BID 12/23/18 12/23/18 Unknown History levETIRAcetam [Keppra TAB] 500 mg PO BID 30 Days #60 tablet 12/23/18 Unknown Rx Zolpidem [Ambien] 5 mg PO QHS PRN #10 tablet 01/02/19 Unknown Rx Zolpidem [Ambien] 5 mg PO QHS PRN #3 tablet 04/14/19 1 Day Ago Rx ~05/09/21 5 mg metroNIDAZOLE [Flagyl] 500 mg PO Q12HR 7 Days #14 tab 06/28/19 Unknown Rx Ondansetron [Zofran Odt] 4 mg PO Q8HR PRN #12 tab.rapdis 11/23/20 Unknown Rx Acetaminophen [Acetaminophen 8 650 mg PO Q8H PRN #12 tablet.er 01/11/21 Unknown Rx Hour] Benzonatate [Tessalon Perles] 100 mg PO Q8HR PRN #12 capsule 01/11/21 Unknown Rx ED Physical Exam - General Limitations: No Limitations General appearance: alert, in no apparent distress - Head Head exam: Present: atraumatic, normocephalic - Eye Eye exam: Present: normal appearance, PERRL, EOMI. Absent: nystagmus - ENT ENT exam: Present: normal exam, normal orophraynx, mucous membranes moist, normal external ear exam - Neck Neck exam: Present: normal inspection, full ROM. Absent: tenderness, meningismus - Respiratory Respiratory exam: Present: normal lung sounds bilaterally. Absent: respiratory distress, wheezes, rales, rhonchi, stridor - Cardiovascular Cardiovascular Exam: Present: regular rate, normal rhythm, normal heart sounds. Absent: bradycardia, tachycardia, irregular rhythm, systolic murmur, diastolic murmur, rubs, gallop - GI/Abdominal GI/Abdominal exam: Present: soft. Absent: distended, tenderness, guarding, rebound, rigid, pulsatile mass - Extremities Exam Extremities exam: Present: normal inspection, full ROM, other (2+ pulses noted in the bilateral upper and lower extremities. There is no palpable cord. negative Homans sign. Muscular compartments are soft. The pelvis is stable.). Absent: pedal edema, calf tenderness - Back Exam Back exam: Present: normal inspection, full ROM. Absent: tenderness, CVA tenderness (R), CVA tenderness (L), paraspinal tenderness, vertebral tenderness - Neurological Exam Neurological exam: Present: alert, oriented X3, other (No facial droop. Tongue midline. Extraocular movements intact bilaterally. Facial sensation intact to light touch in V1, V2, V3 distribution bilaterally. 5 and a 5 strength in 4 extremities. Sensation intact to light touch in 4 extremities.). Absent: motor sensory deficit - Psychiatric Psychiatric exam: Present: anxious - Skin Skin exam: Present: warm, dry, intact, normal color. Absent: rash ED Course Vital Signs 05/10/21 05/10/21 07:07 09:06 Temperature 96.8 F L 97.8 F Pulse Rate 97 H 86 Respiratory 17 17 Rate Blood Pressure 128/92 145/94 [Right] O2 Sat by Pulse 99 97 Oximetry - Reevaluation(s) Reevaluation #1: 05/10/21 09:46 Differential diagnosis, including but not limited to: Seizure, pseudoseizure, electrolyte derangement, dehydration Assessment and plan: 35-year-old female, who was afebrile, with reassuring vital signs, who is clinically sober, with a GCS of 15, who reports that she is not and has not delivered her given within the past 6 weeks, presenting to the ER today with resolved convulsive event. Her physical examination is benign, reassuring, and unremarkable. She endorses intermittent compliance with her outpatient AED medication. We do not have her medication on formulary. Contacted the pharmacist, Mr. Reza, discussed the patient's history, physical, clinical impression, and have requested recommendations for similar medications, as the patient reports intolerance to multiple AED medications. We will treat her with Tylenol for her lower extremity pain and cramping. Her muscular compartments are soft. She denies co ugh, and irritative and obstructive urinary symptoms. She is young and otherwise healthy, therefore, pneumonia, urinary tract infection unlikely. The patient is counseled to not drive or operate motor vehicles for the next 6 months, or until cleared to do so by her primary care doctor or neurologist. Reassess after initial data points have resulted. 05/10/21 11:33 Laboratory studies unremarkable. No seizures noted. Patient on cell phone, and in no acute distress. Patient denies having additional symptoms at this time. Patient was offered Keppra, which she declined. Patient states that she is reliable to take her seizure medication at home. Given patient's reported intolerance to numerous AED medications, given that we do not have her seizure medication on formulary, given that she states that she is reliable to take her seizure medicine as soon as she gets home, given that she has been observed in this ER for hours without deterioration or recurrent convulsive event, I think it is reasonable to discharge this patient, with instructions to take her medication at home ED Medical Decision Making - Lab Data Result diagrams: 05/10/21 09:32 05/10/21 09:32 Vital Signs 05/10/21 05/10/21 07:07 09:06 Temperature 96.8 F L 97.8 F Pulse Rate 97 H 86 Respiratory 17 17 Rate Blood Pressure 128/92 145/94 [Right] O2 Sat by Pulse 99 97 Oximetry Vital Signs 05/10/21 05/10/21 07:07 09:06 Temperature 96.8 F L 97.8 F Pulse Rate 97 H 86 Respiratory 17 17 Rate Blood Pressure 128/92 145/94 [Right] O2 Sat by Pulse 99 97 Oximetry Lab Results 05/10/21 05/10/21 05/10/21 Range/Units 09:32 09:32 09:32 Hgb 12.5 (10.1-14.3) gm/dl Hct 40.7 (30.3-42.9) % Plt Count 265 (140-440) K/mm3 Sodium 133 L (137-145) mmol/L Potassium 3.5 L (3.6-5.0) mmol/L Chloride 95.1 L (98-107) mmol/L Carbon Dioxide 21 L (22-30) mmol/L Anion Gap 20 mmol/L BUN 13 (7-17) mg/dL Creatinine 1.0 (0.6-1.2) mg/dL Estimated GFR > 60 ml/min BUN/Creatinine Ratio 13 % Glucose 70 (65-100) mg/dL Calcium 9.0 (8.4-10.2) mg/dL Magnesium 2.30 (1.7-2.3) mg/dL Total Creatine Kinase 440 H (30-135) units/L HCG, Quant < 2 (0-4) mIU/mL - EKG Data -: EKG Interpreted by Me EKG shows normal: sinus rhythm Rate: normal - EKG Data 05/10/21 09:46 The EKG is interpreted at 09: 29 Sinus rhythm, 81 bpm. Normal axis, normal P wave axis, high left ventricular voltage, the QTC is prolonged, and there is motion artifact. This is an abnormal EKG, this is not a STEMI. Critical care attestation.: If time is entered above; I have spent that time in minutes in the direct care of this critically ill patient, excluding procedure time. ED Disposition Clinical Impression: History of convulsions Disposition: 01 HOME / SELF CARE / HOMELESS Is pt being admited?: No Condition: Good Instructions: Seizure, Adult Additional Instructions: Please make certain to take your prescribed seizure medication twice daily, as directed. Noncompliance with seizure medication may cause breakthrough seizure, which may cause , disability, paralysis, loss of quality of life. Patient may alternate [id number] Tylenol and ibuprofen [id number] as needed for physical pain. Patient should not drive or operate motor vehicles for the next 6 months, until cleared to do so by her primary care doctor or neurologist. We do recommend follow-up with your neurologist within the next 3 to 5 days for repeat checkup evaluation, or follow-up with an outpatient primary care doctor in the same timeframe. Please return to the emergency room right away with new pain, worsened pain, migration of pain, projectile vomiting, change in mental status, confusion, inability to tolerate liquid feeds, new, worsened or different symptoms not present on the initial emergency room evaluation. Referrals: [facility] [Provider Group] - 3-5 Days GISSELLE WU MD [Staff Physician] - 3-5 Days Forms: Work/School Release Form(ED)
[2021-05-10] MEDS ORDERED: LACTATED RINGERS 1,000 ML IV ONE (09:48)
[2021-05-10 09:59] LABS: Hematocrit 40.7 % (30.3-42.9); Hemoglobin 12.5 gm/dl (10.1-14.3)
[2021-05-10 10:23] LABS: BUN/Creatinine Ratio 13; Blood Urea Nitrogen 13 mg/dL (7-17); Hemolysis Index 4
[2021-05-10 11:43] VITALS: BP 150/99
--- NOTE | 2021-05-12 14:25 | Electrocardiograph Report ---
[facility] Test Date: 2021-05-10 Test Time: 09:29:11 Pat Name: JEN GIBSON Department: Room: Gender: F Order Taker: ZOILA : 1985 Requested By: YAMILE MOCK Order Number: [id number] Reading MD: Kari Lopez Measurements Intervals [place] Rate: 81 P: 7 WA: 162 QRS: 25 QRSD: 86 T: 32 QT: 400 QTc: 464 Interpretive Statements Sinus rhythm Consider left ventricular hypertrophy Compared to ECG 04/20/2021 13:33:08 No significant changes Electronically Signed On 05-12-2021 14:25:23 EST by Kari Lopez
== END 2021-05-10 11:41 | disposition home or self-care (01) ==
LOC: ED 07:03
DX: G40.909 Epilepsy, unspecified, not intractable, without status epilepticus (principal); I10 Essential (primary) hypertension
CPT/HCPCS: 36415; 80048; 82550; 83735; 84702; 85014; 85018; 85049; 93005; 96360; 99284; J7120; J3490; Q0162